=== PATIENT | male | born 1965 | race Caucasian/White ===

== ENCOUNTER 2018-08-16 16:45 | Inpatient (IN) | payer MEDICARE, MEDICAID ==
[~2018-08-16] VITALS: Ht 190.5 cm; Wt 104.0 kg
[~2018-08-16 16:45] MED LIST: BACTDSB PO; ELVI1TAB3 PO; METO50 PO; RISP2 PO
[2018-08-16] MEDS ORDERED: HALOPERIDOL 5 MG TABLET PO PRN (19:00)
[2018-08-16] MEDS ORDERED: ALBUTEROL SULFATE HFA 90 MCG/PUFF 8 GM INHALER IH PRN (19:15)
[2018-08-16] MEDS ORDERED: PETROLATUM,WHITE 71 GM JELLY TP PRN (19:15)
[2018-08-16] MEDS ORDERED: MAG HYDROX/AL HYDROX/SIMETH ES 30 ML SUSPENSION UDCUP PO PRN (19:15)
[2018-08-16] MEDS ORDERED: LOPERAMIDE HCL 2 MG CAPSULE PO PRN (19:15)
[2018-08-16] MEDS ORDERED: ACETAMINOPHEN 325 MG TABLET PO PRN (19:15)
[2018-08-16] MEDS ORDERED: IBUPROFEN 400 MG TABLET PO PRN (19:15)
[2018-08-16] MEDS ORDERED: DOCUSATE SODIUM 100 MG CAPSULE PO PRN (19:15)
[2018-08-16] MEDS ORDERED: MAGNESIUM HYDROXIDE SUSPENSION 30 ML UDCUP PO PRN (19:15)
[2018-08-16] MEDS ORDERED: GuaiFENesin/D-METHORPHAN [SUGAR-FREE] 200-20MG/10 ML SYRUP UDCUP PO PRN (19:15)
[2018-08-16] MEDS ORDERED: CloNIDine HCL 0.1 MG TABLET PO PRN (19:15)
[2018-08-16] MEDS ORDERED: ONDANSETRON HCL 4 MG TABLET PO PRN (19:15)
[2018-08-16 19:49] VITALS: BP 121/63
[2018-08-16] MEDS: RisperiDONE 2 MG TABLET PO SCH (20:56)
[2018-08-17 05:15] VITALS: BP 116/74
[2018-08-17] MEDS ORDERED: PNEUMOCOCCAL VACCINE POLYVALENT 0.5 ML VIAL [PPSV23] IM ONE (05:30)
[2018-08-17 07:04] LABS: BASOPHILS % (AUTO) 1.3 % (0.0-2.0); EOSINOPHILS % (AUTO) 5.4 % (1.0-6.0); HEMATOCRIT 42.1 % (41-53); LYMPHOCYTES # (AUTO) 1.9 K/uL (1.0-4.8); LYMPHOCYTES % (AUTO) 47.6 % (22.0-44.0); MEAN CORPUSCULAR HEMOGLOBIN 33.2 pg (26.0-34.0); MEAN CORPUSCULAR HGB CONC 35.6 G/dL (31.0-37.0); MEAN CORPUSCULAR VOLUME 93 fL (80-100); MONOCYTES # (AUTO) 0.5 K/uL (0.1-1.0); MONOCYTES % (AUTO) 11.5 % (2.0-9.0); NEUTROPHILS # (AUTO) 1.4 K/uL (1.8-7.7); NEUTROPHILS % (AUTO) 34.2 % (40.0-70.0); PLATELET COUNT (AUTO) 156 K/uL (150-450); RED BLOOD CELL COUNT(AUTO) 4.52 MIL/uL (4.50-5.90)
[2018-08-17] MEDS: ELVITEG/COB/EMTRI/TENOF ALAFEN 150-150-200-10MG TABLET PO SCH (07:06)
[2018-08-17 07:34] LABS: HEMOGLOBIN A1C 5.3 % (4.5-6.2)
[2018-08-17 07:38] LABS: APPEARANCE,URINE CLEAR (CLEAR); BILIRUBIN,URINE NEGATIVE (NEGATIVE); GLUCOSE, URINE (UA) NEGATIVE (NEGATIVE); KETONES,URINE NEGATIVE (NEGATIVE); LEUKOCYTE ESTERASE ,URINE NEGATIVE (NEGATIVE); NITRATE,URINE NEGATIVE (NEGATIVE); OCCULT BLOOD,URINE NEGATIVE (NEGATIVE); PROTEIN,URINE NEGATIVE (NEGATIVE); UROBILINOGEN,URINE 0.2 mg/dL (<=1.0)
[2018-08-17 07:39] LABS: AMPHET/METH SCREEN,URINE POSITIVE (NEGATIVE); BARBITURATE SCREEN, URINE NEGATIVE (NEGATIVE); BENZODIAZEPINES SCREEN,URINE NEGATIVE (NEGATIVE); CANNABINOID SCREEN,URINE NEGATIVE (NEGATIVE); COCAINE SCREEN,URINE NEGATIVE (NEGATIVE); METHADONE SCREEN, URINE NEGATIVE (NEGATIVE); OPIATE SCREEN,URINE NEGATIVE (NEGATIVE)
[2018-08-17 07:41] LABS: PHENCYCLIDINE SCREEN,URINE NEGATIVE (NEGATIVE)
[2018-08-17] MEDS: ASPIRIN 81 MG CHEWABLE TABLET PO SCH (08:24)
[2018-08-17] MEDS: RisperiDONE 2 MG TABLET PO SCH ×2 (08:24→20:14)
[2018-08-17] MEDS: SULFAMETHOX/TRIMETH DS 800-160 MG/TABLET PO SCH ×2 (08:24→16:16)
[2018-08-17] MEDS: FLUoxetine HCL 20 MG CAPSULE PO SCH (08:25)
[2018-08-17 08:36] VITALS: BP 122/75
[2018-08-17] MEDS ORDERED: METOPROLOL TARTRATE 50 MG TABLET PO SCH (09:00)
[2018-08-17] MEDS ORDERED: NICOTINE 14 MG/24 HOUR PATCH TD SCH (09:00)
[2018-08-17 09:15] LABS: ALBUMIN 3.5 g/dL (3.4-5.0); BILIRUBIN,TOTAL 0.2 mg/dL (0.1-1.0); CALCIUM, TOTAL 8.7 mg/dL (8.8-10.5); CHOL/HDL RATIO 3.2 (4.2-7.3); CREATININE 1.33 mg/dL (0.60-1.30); POTASSIUM 4.5 mmol/L (3.5-5.1); THYROID STIMULATING HORMONE 3.07 uIU/mL (0.36-3.74); TOTAL PROTEIN, SERUM 6.4 g/dL (6.4-8.2)
[2018-08-17] MEDS: NICOTINE 14 MG/24 HOUR PATCH TD PRN (12:55)
[2018-08-17] MEDS: LORazepam 2 MG TABLET PO PRN (16:16)
[2018-08-17] MEDS: METOPROLOL TARTRATE 50 MG TABLET PO SCH (16:16)
[2018-08-17 18:34] VITALS: BP 129/73
[2018-08-17] MEDS ORDERED: METOPROLOL TARTRATE 25 MG TABLET PO SCH (21:00)
[2018-08-18] MEDS: ELVITEG/COB/EMTRI/TENOF ALAFEN 150-150-200-10MG TABLET PO SCH (07:21)
[2018-08-18] MEDS: SULFAMETHOX/TRIMETH DS 800-160 MG/TABLET PO SCH ×2 (07:57→16:33)
[2018-08-18] MEDS: FLUoxetine HCL 20 MG CAPSULE PO SCH (07:57)
[2018-08-18] MEDS: ASPIRIN 81 MG CHEWABLE TABLET PO SCH (07:58)
[2018-08-18] MEDS: RisperiDONE 2 MG TABLET PO SCH ×2 (07:58→20:20)
[2018-08-18 08:39] VITALS: BP 105/63
[2018-08-18] MEDS: METOPROLOL TARTRATE 50 MG TABLET PO SCH ×2 (09:00→16:33)
[2018-08-18] MEDS: NICOTINE 14 MG/24 HOUR PATCH TD PRN (13:38)
[2018-08-18 16:13] VITALS: BP 120/63
[2018-08-19] MEDS: ELVITEG/COB/EMTRI/TENOF ALAFEN 150-150-200-10MG TABLET PO SCH (06:31)
[2018-08-19] MEDS: SULFAMETHOX/TRIMETH DS 800-160 MG/TABLET PO SCH ×2 (08:26→16:10)
[2018-08-19] MEDS: FLUoxetine HCL 20 MG CAPSULE PO SCH (08:28)
[2018-08-19] MEDS: ASPIRIN 81 MG CHEWABLE TABLET PO SCH (08:29)
[2018-08-19] MEDS: RisperiDONE 2 MG TABLET PO SCH ×2 (08:30→20:21)
[2018-08-19] MEDS: METOPROLOL TARTRATE 50 MG TABLET PO SCH ×2 (09:00→16:11)
[2018-08-19 11:12] VITALS: BP 132/72
[2018-08-19] MEDS: LORazepam 2 MG TABLET PO PRN (16:10)
[2018-08-19 17:59] VITALS: BP 119/75
[2018-08-20] MEDS: ELVITEG/COB/EMTRI/TENOF ALAFEN 150-150-200-10MG TABLET PO SCH (06:34)
[2018-08-20] MEDS: FLUoxetine HCL 20 MG CAPSULE PO SCH (08:22)
[2018-08-20] MEDS: SULFAMETHOX/TRIMETH DS 800-160 MG/TABLET PO SCH ×2 (08:22→16:17)
[2018-08-20] MEDS: RisperiDONE 2 MG TABLET PO SCH ×2 (08:22→20:31)
[2018-08-20] MEDS: ASPIRIN 81 MG CHEWABLE TABLET PO SCH (08:22)
[2018-08-20] MEDS: METOPROLOL TARTRATE 50 MG TABLET PO SCH ×2 (09:00→16:20)
[2018-08-20 10:14] VITALS: BP 113/71
[2018-08-20] MEDS: NICOTINE 14 MG/24 HOUR PATCH TD PRN (14:12)
[2018-08-20] MEDS: LORazepam 2 MG TABLET PO PRN (16:21)
[2018-08-20 16:29] VITALS: BP 120/75
[2018-08-21 00:12] VITALS: BP 121/55
[2018-08-21] MEDS: ZOLPIDEM TARTRATE 5 MG TABLET PO PRN ×2 (00:39→20:05)
[2018-08-21] MEDS: ELVITEG/COB/EMTRI/TENOF ALAFEN 150-150-200-10MG TABLET PO SCH (06:39)
[2018-08-21] MEDS: ASPIRIN 81 MG CHEWABLE TABLET PO SCH (08:28)
[2018-08-21] MEDS: FLUoxetine HCL 20 MG CAPSULE PO SCH (08:29)
[2018-08-21] MEDS: SULFAMETHOX/TRIMETH DS 800-160 MG/TABLET PO SCH ×2 (08:29→16:35)
[2018-08-21] MEDS: RisperiDONE 2 MG TABLET PO SCH ×2 (08:29→20:05)
[2018-08-21] MEDS: METOPROLOL TARTRATE 50 MG TABLET PO SCH ×2 (08:36→16:39)
[2018-08-21 13:37] VITALS: BP 119/90
[2018-08-21] MEDS: NICOTINE 14 MG/24 HOUR PATCH TD PRN (14:12)
[2018-08-21] MEDS: LORazepam 2 MG TABLET PO PRN (16:35)
[2018-08-21 17:00] VITALS: BP 134/78
[2018-08-22 00:51] VITALS: BP 131/64
[2018-08-22] MEDS: ELVITEG/COB/EMTRI/TENOF ALAFEN 150-150-200-10MG TABLET PO SCH (07:00)
[2018-08-22] MEDS: SULFAMETHOX/TRIMETH DS 800-160 MG/TABLET PO SCH (08:20)
[2018-08-22] MEDS: ASPIRIN 81 MG CHEWABLE TABLET PO SCH (08:22)
[2018-08-22] MEDS: FLUoxetine HCL 20 MG CAPSULE PO SCH (08:22)
[2018-08-22] MEDS: METOPROLOL TARTRATE 50 MG TABLET PO SCH (08:22)
[2018-08-22] MEDS: RisperiDONE 2 MG TABLET PO SCH (08:23)
[2018-08-22 09:00] VITALS: BP 130/71
[2018-08-22] MEDS ORDERED: FLUO-191 PO (09:52)
[2018-08-22] MEDS ORDERED: ASPI81 PO (09:54)
== END 2018-08-22 11:00 | disposition home or self-care (01) | DRG 885 ==
LOC: 3EX 16:45 → UNDOADMIN 18:20
PROVIDERS: ADMIT Psychiatry & Neurology Psychiatry; ATTEND Psychiatry & Neurology Psychiatry
DX: F25.0 Schizoaffective disorder, bipolar type (principal); N17.9 Acute kidney failure, unspecified; B20 Human immunodeficiency virus [HIV] disease; R45.851 Suicidal ideations; D72.819 Decreased white blood cell count, unspecified; F17.290 Nicotine dependence, other tobacco product, uncomplicated; F41.9 Anxiety disorder, unspecified; F15.10 Other stimulant abuse, uncomplicated; I10 Essential (primary) hypertension; I95.9 Hypotension, unspecified; I48.0 Paroxysmal atrial fibrillation; Z59.0 Homelessness; Z91.5 Personal history of self-harm; Z28.21 Immunization not carried out because of patient refusal; Z88.5 Allergy status to narcotic agent; Z79.899 Other long term (current) drug therapy; Z71.51 Drug abuse counseling and surveillance of drug abuser
CPT/HCPCS: 80307; 83036; 84443; 87081; G0378

== ENCOUNTER 2020-11-21 08:01 | Emergency (ER) | payer MEDICARE, MEDICAID ==
[~2020-11-21] VITALS: Ht 190.5 cm; Wt 120.0 kg
[~2020-11-21 08:01] MED LIST changes: +ASCO500 PO; -BACTDSB PO; +BICT1TAB PO; +CYCL10 PO; -ELVI1TAB3 PO; +FLUO-191 PO; -METO50 PO; -RISP2 PO; +RISP2TAB45 PO; +WARF7.5T7 PO
[2020-11-21 08:50] LABS: BASOPHILS % (AUTO) 0.8 % (0.0-2.0); EOSINOPHILS % (AUTO) 2.2 % (1.0-6.0); HEMATOCRIT 40.2 % (41-53); HEMOGLOBIN 14.1 g/dL (13.5-17.5); LYMPHOCYTES # (AUTO) 1.9 K/uL (1.0-4.8); LYMPHOCYTES % (AUTO) 23.7 % (22.0-44.0); MEAN CORPUSCULAR HEMOGLOBIN 31.8 pg (26.0-34.0); MEAN CORPUSCULAR HGB CONC 35.1 G/dL (31.0-37.0); MEAN CORPUSCULAR VOLUME 91 fL (80-100); MONOCYTES # (AUTO) 0.8 K/uL (0.1-1.0); NEUTROPHILS # (AUTO) 5.2 K/uL (1.8-7.7); NEUTROPHILS % (AUTO) 63.3 % (40.0-70.0); PLATELET COUNT (AUTO) 149 K/uL (150-450); RED BLOOD CELL COUNT(AUTO) 4.44 MIL/uL (4.50-5.90); RED CELL DISTRIBUTION WIDTH 14.5 % (11.5-14.5)
[2020-11-21] MEDS ORDERED: LORazepam 1 MG TABLET PO ONE (09:15)
[2020-11-21 09:26] LABS: BILIRUBIN,TOTAL 0.8 mg/dL (0.1-1.0); CALCIUM, TOTAL 9.3 mg/dL (8.8-10.5); CREATININE 1.29 mg/dL (0.60-1.30); TOTAL PROTEIN, SERUM 7.4 g/dL (6.4-8.2)
[2020-11-21 09:28] LABS: POTASSIUM 2.2 mmol/L (3.5-5.1)
[2020-11-21 09:31] LABS: INR 2.5 (0.9-1.1); PROTHROMBIN TIME 24.6 SEC (9.4-11.6)
[2020-11-21] MEDS ORDERED: POTASSIUM CHLORIDE 20 MEQ ER TABLET PO ONE ×2 (09:45→12:00)
[2020-11-21] MEDS ORDERED: POTASSIUM CHL 10 MEQ/WATER 50 ML IV ONE ×2 (09:45→12:00)
[2020-11-21 15:31] VITALS: BP 127/59
== END 2020-11-21 15:32 | disposition home or self-care (01) ==
LOC: EMS 08:01
DX: R00.2 Palpitations (principal); E87.6 Hypokalemia; R07.9 Chest pain, unspecified; I48.91 Unspecified atrial fibrillation; F31.9 Bipolar disorder, unspecified; F17.210 Nicotine dependence, cigarettes, uncomplicated; F19.90 Other psychoactive substance use, unspecified, uncomplicated; Z88.5 Allergy status to narcotic agent; Z79.01 Long term (current) use of anticoagulants
CPT/HCPCS: 36415; 80053; 84132; 84484; 85025; 85610; 93005; 96365; 96366; 99285; J3480

== ENCOUNTER 2020-11-24 12:33 | Emergency (ER) | payer MEDICARE, MEDICAID ==
[~2020-11-24] VITALS: Ht 190.5 cm; Wt 113.6 kg
[2020-11-24 13:55] LABS: COVID AG,FIA SOURCE NASOPHARYNGEAL
[2020-11-24 14:00] LABS: BASOPHILS % (AUTO) 0.9 % (0.0-2.0); EOSINOPHILS % (AUTO) 2.3 % (1.0-6.0); HEMATOCRIT 41.7 % (41-53); HEMOGLOBIN 14.2 g/dL (13.5-17.5); LYMPHOCYTES # (AUTO) 2.1 K/uL (1.0-4.8); LYMPHOCYTES % (AUTO) 29.8 % (22.0-44.0); MEAN CORPUSCULAR HEMOGLOBIN 31.4 pg (26.0-34.0); MEAN CORPUSCULAR HGB CONC 34.1 G/dL (31.0-37.0); MEAN CORPUSCULAR VOLUME 92 fL (80-100); MONOCYTES # (AUTO) 0.7 K/uL (0.1-1.0); MONOCYTES % (AUTO) 9.7 % (2.0-9.0); NEUTROPHILS # (AUTO) 4.1 K/uL (1.8-7.7); NEUTROPHILS % (AUTO) 57.3 % (40.0-70.0); PLATELET COUNT (AUTO) 161 K/uL (150-450); RED BLOOD CELL COUNT(AUTO) 4.53 MIL/uL (4.50-5.90); RED CELL DISTRIBUTION WIDTH 14.6 % (11.5-14.5)
[2020-11-24 14:12] LABS: PROTHROMBIN TIME 20.1 SEC (9.4-11.6)
[2020-11-24 14:30] LABS: ALANINE AMINOTRANSFERASE 50 U/L (12-78); ALKALINE PHOSPHATASE 74 U/L (46-116); ANION GAP 14 mmol/L (8-16); ASPARTATE AMINOTRANSFERASE 48 U/L (15-37); BILIRUBIN,TOTAL 0.9 mg/dL (0.1-1.0); CALCIUM, TOTAL 8.6 mg/dL (8.8-10.5); CARBON DIOXIDE 28 mmol/L (22-29); CHLORIDE 99 mmol/L (98-107); CREATININE 1.14 mg/dL (0.60-1.30); GLOMERULAR FILTR. RATE CALC > 60 mL/min (>60); GLUCOSE,RANDOM 100 mg/dL (70-110); POTASSIUM 2.7 mmol/L (3.5-5.1); SODIUM SERUM 141 mmol/L (136-145); TOTAL PROTEIN, SERUM 7.3 g/dL (6.4-8.2); UREA NITROGEN, BLOOD 14 mg/dL (7-18)
[2020-11-24 14:35] LABS: AMPHET/METH SCREEN,URINE POSITIVE (NEGATIVE); BARBITURATE SCREEN, URINE NEGATIVE (NEGATIVE); BENZODIAZEPINES SCREEN,URINE NEGATIVE (NEGATIVE); CANNABINOID SCREEN,URINE NEGATIVE (NEGATIVE); COCAINE SCREEN,URINE NEGATIVE (NEGATIVE); METHADONE SCREEN, URINE NEGATIVE (NEGATIVE); OPIATE SCREEN,URINE NEGATIVE (NEGATIVE); PHENCYCLIDINE SCREEN,URINE NEGATIVE (NEGATIVE)
[2020-11-24] MEDS ORDERED: POTASSIUM CHLORIDE 20 MEQ ER TABLET PO ONE (14:45)
[2020-11-24 15:00] VITALS: BP 145/82
== END 2020-11-24 16:47 | disposition left against medical advice (07) ==
LOC: EMS 12:40
DX: F31.9 Bipolar disorder, unspecified (principal); E87.6 Hypokalemia; I48.91 Unspecified atrial fibrillation; F17.210 Nicotine dependence, cigarettes, uncomplicated; F15.90 Other stimulant use, unspecified, uncomplicated; Z20.822 Contact with and (suspected) exposure to COVID-19
CPT/HCPCS: 36415; 80053; 80307; 85025; 85610; 87426; 93005; 99284; G0480

== ENCOUNTER 2021-05-07 13:21 | Inpatient (IN) | payer MEDICARE, MEDICAID ==
[~2021-05-07] VITALS: Ht 190.5 cm; Wt 121.1 kg
[2021-05-07 14:53] LABS: BASOPHILS % (AUTO) 0.8 % (0.0-2.0); HEMOGLOBIN 16.1 g/dL (13.5-17.5); LYMPHOCYTES # (AUTO) 2.8 K/uL (1.0-4.8); LYMPHOCYTES % (AUTO) 35.6 % (22.0-44.0); MEAN CORPUSCULAR HEMOGLOBIN 32.1 pg (26.0-34.0); MEAN CORPUSCULAR HGB CONC 33.5 G/dL (31.0-37.0); MEAN CORPUSCULAR VOLUME 96 fL (80-100); MONOCYTES # (AUTO) 0.9 K/uL (0.1-1.0); MONOCYTES % (AUTO) 10.8 % (2.0-9.0); NEUTROPHILS % (AUTO) 50.8 % (40.0-70.0); PLATELET COUNT (AUTO) 141 K/uL (150-450); RED CELL DISTRIBUTION WIDTH 16.1 % (11.5-14.5)
[2021-05-07 15:02] LABS: ANION GAP 10 mmol/L (8-16); CALCIUM, TOTAL 8.7 mg/dL (8.8-10.5); CARBON DIOXIDE 26 mmol/L (22-29); CHLORIDE 103 mmol/L (98-107); CREATININE 1.43 mg/dL (0.60-1.30); GLOMERULAR FILTR. RATE CALC 51 mL/min (>60); GLUCOSE,RANDOM 80 mg/dL (70-110); POTASSIUM 3.7 mmol/L (3.5-5.1); SODIUM SERUM 139 mmol/L (136-145); UREA NITROGEN, BLOOD 19 mg/dL (7-18)
[2021-05-07 15:05] LABS: INR 1.6 (0.9-1.1); PROTHROMBIN TIME 16.2 SEC (9.4-11.6)
[2021-05-07 15:10] LABS: ALANINE AMINOTRANSFERASE 68 U/L (12-78); ALKALINE PHOSPHATASE 66 U/L (46-116); ASPARTATE AMINOTRANSFERASE 38 U/L (15-37); BILIRUBIN,TOTAL 0.9 mg/dL (0.1-1.0); TOTAL PROTEIN, SERUM 7.5 g/dL (6.4-8.2)
[2021-05-07 15:25] LABS: COVID AG,FIA SOURCE NASOPHARYNGEAL
[2021-05-07] MEDS ORDERED: ZOLPIDEM TARTRATE 10 MG TABLET PO PRN (15:30)
[2021-05-07] MEDS ORDERED: HALOPERIDOL 5 MG TABLET PO PRN (15:30)
[2021-05-07 15:39] LABS: AMPHET/METH SCREEN,URINE POSITIVE (NEGATIVE); BARBITURATE SCREEN, URINE NEGATIVE (NEGATIVE); BENZODIAZEPINES SCREEN,URINE NEGATIVE (NEGATIVE); CANNABINOID SCREEN,URINE NEGATIVE (NEGATIVE); COCAINE SCREEN,URINE NEGATIVE (NEGATIVE); METHADONE SCREEN, URINE NEGATIVE (NEGATIVE); OPIATE SCREEN,URINE NEGATIVE (NEGATIVE)
[2021-05-07 15:48] LABS: PHENCYCLIDINE SCREEN,URINE NEGATIVE (NEGATIVE)
[2021-05-08] MEDS ORDERED: CALCIUM CARBONATE 500 MG CHEWABLE TABLET CHEW ONE (00:45)
[2021-05-08 02:08] LABS: CHOL/HDL RATIO 3.6 (4.2-7.3); CHOLESTEROL 136 mg/dL (131-200); FREE T4 (FREE THYROXINE) 1.03 ng/dL (0.76-1.46); HDL CHOLESTEROL 38 mg/dL (40-60); LDL CHOL (CALC.) 74 mg/dL (0-130); THYROID STIMULATING HORMONE 1.34 uIU/mL (0.36-3.74); TRIGLYCERIDES 121 mg/dL (15-150)
[2021-05-08 10:00] VITALS: BP 138/74
[2021-05-08] MEDS: NICOTINE 21 MG/24 HOUR PATCH TD SCH (15:55)
[2021-05-08 16:04] VITALS: BP 120/67
[2021-05-08] MEDS ORDERED: IBUPROFEN 600 MG TABLET PO PRN (16:15)
[2021-05-08] MEDS ORDERED: LOPERAMIDE HCL 2 MG CAPSULE PO PRN ×2 (16:15)
[2021-05-08] MEDS ORDERED: DOCUSATE SODIUM 100 MG CAPSULE PO PRN ×2 (16:15)
[2021-05-08] MEDS ORDERED: ALBUTEROL SULFATE HFA 90 MCG/PUFF 8 GM INHALER IH PRN ×2 (16:15)
[2021-05-08] MEDS ORDERED: OMEPRAZOLE 20 MG CAPSULE PO PRN (16:15)
[2021-05-08] MEDS ORDERED: IBUPROFEN 400 MG TABLET PO PRN (16:15)
[2021-05-08] MEDS ORDERED: ONDANSETRON HCL 4 MG TABLET PO PRN ×2 (16:15)
[2021-05-08] MEDS ORDERED: BENZOCAINE/MENTHOL LOZENGE PO PRN (16:15)
[2021-05-08] MEDS ORDERED: PETROLATUM,WHITE 28 GM JELLY TP PRN ×2 (16:15)
[2021-05-08] MEDS ORDERED: BACITRACIN 28 GM OINTMENT TP PRN (16:15)
[2021-05-08] MEDS ORDERED: NICOTINE 14 MG/24 HOUR PATCH TD PRN (16:15)
[2021-05-08] MEDS ORDERED: MAG HYDROX/AL HYDROX/SIMETH ES 30 ML SUSPENSION UDCUP PO PRN (16:15)
[2021-05-08] MEDS ORDERED: MAGNESIUM HYDROXIDE SUSPENSION 30 ML UDCUP PO PRN (16:15)
[2021-05-08] MEDS ORDERED: *CLINICAL-WARFARIN SODIUM DOSING CLINICAL ONE (16:15)
[2021-05-08] MEDS ORDERED: ACETAMINOPHEN 325 MG TABLET PO PRN ×2 (16:15)
[2021-05-08] MEDS ORDERED: CloNIDine HCL 0.1 MG TABLET PO PRN ×2 (16:15)
[2021-05-08] MEDS ORDERED: GuaiFENesin/D-METHORPHAN [SUGAR-FREE] 200-20MG/10 ML SYRUP UDCUP PO PRN (16:15)
[2021-05-08] MEDS ORDERED: WARFARIN SODIUM 5 MG TABLET PO ONE (17:00)
[2021-05-08] MEDS ORDERED: PNEUMOCOCCAL VACCINE POLYVALENT 0.5 ML VIAL [PPSV23] IM. ONE (17:00)
[2021-05-08] MEDS: CYCLOBENZAPRINE HCL 10 MG TABLET PO SCH (17:32)
[2021-05-08] MEDS: OLANZapine 7.5 MG TABLET PO SCH (20:08)
[2021-05-08] MEDS: MIRTAZAPINE 30 MG TABLET PO SCH (20:08)
[2021-05-09 03:15] VITALS: BP 125/72
[2021-05-09 08:08] VITALS: BP 113/59
[2021-05-09] MEDS ORDERED: BICTEGRAV/EMTRICIT/TENOFOV ALA 50-200-25 MG TABLET PO SCH (09:00)
[2021-05-09] MEDS: ASCORBIC ACID 500 MG TABLET PO SCH (09:00)
[2021-05-09] MEDS: BICTEGRAV/EMTRICIT/TENOFOV ALA 50-200-25 MG TABLET PO SCH (09:00)
[2021-05-09] MEDS: CYCLOBENZAPRINE HCL 10 MG TABLET PO SCH ×2 (10:40→16:53)
[2021-05-09] MEDS: NICOTINE 21 MG/24 HOUR PATCH TD SCH (10:41)
[2021-05-09] MEDS: LORazepam 2 MG TABLET PO PRN (14:31)
[2021-05-09 16:03] VITALS: BP_SYST 133; BP_SYST 137; BP_DIAS 79; BP_DIAS 86
[2021-05-09 16:13] VITALS: BP 107/79
[2021-05-09] MEDS: MULTIVITAMINS WITH MINERALS, THERAPEUTIC TABLET PO SCH (16:53)
[2021-05-09] MEDS ORDERED: WARFARIN SODIUM 5 MG TABLET PO SCH (17:00)
[2021-05-09] MEDS ORDERED: WARFARIN SODIUM-INR 2.0-3.0-RX DOSING PER PROTOCOL PO PRN (17:00)
[2021-05-09] MEDS: OLANZapine 7.5 MG TABLET PO SCH (20:45)
[2021-05-09] MEDS: MIRTAZAPINE 30 MG TABLET PO SCH (20:45)
[2021-05-10 01:04] VITALS: BP 115/71
[2021-05-10 08:23] VITALS: BP 118/92
[2021-05-10] MEDS: NICOTINE 21 MG/24 HOUR PATCH TD SCH (10:15)
[2021-05-10] MEDS: ASCORBIC ACID 500 MG TABLET PO SCH (10:15)
[2021-05-10] MEDS: BICTEGRAV/EMTRICIT/TENOFOV ALA 50-200-25 MG TABLET PO SCH (10:18)
[2021-05-10] MEDS: CYCLOBENZAPRINE HCL 10 MG TABLET PO SCH ×2 (10:28→17:09)
[2021-05-10] MEDS: MULTIVITAMINS WITH MINERALS, THERAPEUTIC TABLET PO SCH ×2 (10:28→17:09)
[2021-05-10] MEDS: LORazepam 2 MG TABLET PO PRN ×2 (10:38→16:20)
[2021-05-10 16:10] VITALS: BP 114/76
[2021-05-10] MEDS: MAG HYDROX/AL HYDROX/SIMETH ES 30 ML SUSPENSION UDCUP PO PRN (18:00)
[2021-05-10] MEDS: OLANZapine 7.5 MG TABLET PO SCH (20:28)
[2021-05-10] MEDS: MIRTAZAPINE 30 MG TABLET PO SCH (20:28)
[2021-05-10] MEDS ORDERED: WARFARIN SODIUM 2.5 MG TABLET PO SCH (21:00)
[2021-05-10] MEDS ORDERED: WARFARIN SODIUM 1 MG TABLET PO SCH (21:00)
[2021-05-10] MEDS ORDERED: WARFARIN SODIUM 3 MG TABLET PO SCH (21:00)
[2021-05-11 01:02] VITALS: BP 129/77
[2021-05-11 08:21] LABS: INR 1.2 (0.9-1.1)
[2021-05-11 09:03] VITALS: BP 117/63
[2021-05-11] MEDS: MULTIVITAMINS WITH MINERALS, THERAPEUTIC TABLET PO SCH ×2 (09:23→16:31)
[2021-05-11] MEDS: NICOTINE 21 MG/24 HOUR PATCH TD SCH (09:23)
[2021-05-11] MEDS: BICTEGRAV/EMTRICIT/TENOFOV ALA 50-200-25 MG TABLET PO SCH (09:24)
[2021-05-11] MEDS: CYCLOBENZAPRINE HCL 10 MG TABLET PO SCH ×2 (09:24→16:32)
[2021-05-11] MEDS: ASCORBIC ACID 500 MG TABLET PO SCH (09:24)
[2021-05-11] MEDS ORDERED: *CLINICAL-WARFARIN SODIUM DOSING CLINICAL ONE (10:15)
[2021-05-11] MEDS: LORazepam 2 MG TABLET PO PRN ×2 (11:45→15:48)
[2021-05-11 16:23] VITALS: BP 116/65
[2021-05-11] MEDS ORDERED: WARFARIN SODIUM 7.5 MG TABLET PO ONE (17:00)
[2021-05-11] MEDS: MAGNESIUM HYDROXIDE SUSPENSION 30 ML UDCUP PO PRN (17:01)
[2021-05-11] MEDS: MIRTAZAPINE 30 MG TABLET PO SCH (20:20)
[2021-05-11] MEDS: OLANZapine 7.5 MG TABLET PO SCH (20:20)
[2021-05-12 06:07] VITALS: BP 136/60
[2021-05-12 06:58] LABS: INR 1.3 (0.9-1.1); PROTHROMBIN TIME 13.2 SEC (9.4-11.6)
[2021-05-12 08:16] VITALS: BP 125/69
[2021-05-12] MEDS: BICTEGRAV/EMTRICIT/TENOFOV ALA 50-200-25 MG TABLET PO SCH (09:48)
[2021-05-12] MEDS: MULTIVITAMINS WITH MINERALS, THERAPEUTIC TABLET PO SCH ×2 (09:48→16:29)
[2021-05-12] MEDS: NICOTINE 21 MG/24 HOUR PATCH TD SCH (09:49)
[2021-05-12] MEDS: CYCLOBENZAPRINE HCL 10 MG TABLET PO SCH ×2 (09:49→16:29)
[2021-05-12] MEDS: ASCORBIC ACID 500 MG TABLET PO SCH (09:49)
[2021-05-12] MEDS: LORazepam 2 MG TABLET PO PRN (13:12)
[2021-05-12] MEDS: MAGNESIUM HYDROXIDE SUSPENSION 30 ML UDCUP PO PRN (16:55)
[2021-05-12] MEDS ORDERED: WARFARIN SODIUM 7.5 MG TABLET PO ONE (17:00)
[2021-05-12] MEDS: MIRTAZAPINE 30 MG TABLET PO SCH (20:00)
[2021-05-12] MEDS: OLANZapine 7.5 MG TABLET PO SCH (20:00)
[2021-05-13 01:06] VITALS: BP 112/62
[2021-05-13 07:07] LABS: COVID AG,FIA SOURCE NASOPHARYNGEAL
[2021-05-13 07:18] LABS: INR 1.6 (0.9-1.1); PROTHROMBIN TIME 16.3 SEC (9.4-11.6)
[2021-05-13 08:16] VITALS: BP 134/81
[2021-05-13] MEDS: ASCORBIC ACID 500 MG TABLET PO SCH (09:35)
[2021-05-13] MEDS: BICTEGRAV/EMTRICIT/TENOFOV ALA 50-200-25 MG TABLET PO SCH (09:35)
[2021-05-13] MEDS: MULTIVITAMINS WITH MINERALS, THERAPEUTIC TABLET PO SCH ×2 (09:36→16:30)
[2021-05-13] MEDS: CYCLOBENZAPRINE HCL 10 MG TABLET PO SCH ×2 (09:36→16:30)
[2021-05-13] MEDS: NICOTINE 21 MG/24 HOUR PATCH TD SCH (09:39)
[2021-05-13] MEDS: LORazepam 2 MG TABLET PO PRN ×2 (11:20→16:33)
[2021-05-13] MEDS ORDERED: WARFARIN SODIUM-INR 2.0-3.0-RX DOSING PER PROTOCOL PO PRN (14:30)
[2021-05-13 16:23] VITALS: BP 117/70
[2021-05-13] MEDS ORDERED: WARFARIN SODIUM 7.5 MG TABLET PO ONE (17:00)
[2021-05-13] MEDS: MAG HYDROX/AL HYDROX/SIMETH ES 30 ML SUSPENSION UDCUP PO PRN (19:27)
[2021-05-13] MEDS: MIRTAZAPINE 30 MG TABLET PO SCH (20:01)
[2021-05-13] MEDS: OLANZapine 7.5 MG TABLET PO SCH (20:02)
[2021-05-14 00:36] VITALS: BP 139/70
[2021-05-14] MEDS: MAG HYDROX/AL HYDROX/SIMETH ES 30 ML SUSPENSION UDCUP PO PRN ×2 (01:08→21:53)
[2021-05-14 07:05] LABS: ALANINE AMINOTRANSFERASE 55 U/L (12-78); ALBUMIN 3.3 g/dL (3.4-5.0); ALKALINE PHOSPHATASE 55 U/L (46-116); ANION GAP 5 mmol/L (8-16); ASPARTATE AMINOTRANSFERASE 23 U/L (15-37); BILIRUBIN,TOTAL 0.3 mg/dL (0.1-1.0); CALCIUM, TOTAL 7.9 mg/dL (8.8-10.5); CARBON DIOXIDE 28 mmol/L (22-29); CHLORIDE 108 mmol/L (98-107); CREATININE 1.06 mg/dL (0.60-1.30); GLOMERULAR FILTR. RATE CALC > 60 mL/min (>60); GLUCOSE,RANDOM 99 mg/dL (70-110); PHOSPHORUS 3.6 mg/dL (2.5-4.9); POTASSIUM 4.3 mmol/L (3.5-5.1); SODIUM SERUM 141 mmol/L (136-145); TOTAL PROTEIN, SERUM 6.2 g/dL (6.4-8.2); UREA NITROGEN, BLOOD 18 mg/dL (7-18)
[2021-05-14 07:08] LABS: INR 1.4 (0.9-1.1); PROTHROMBIN TIME 14.8 SEC (9.4-11.6)
[2021-05-14 08:36] VITALS: BP 133/85
[2021-05-14] MEDS: MULTIVITAMINS WITH MINERALS, THERAPEUTIC TABLET PO SCH ×2 (09:29→16:34)
[2021-05-14] MEDS: CYCLOBENZAPRINE HCL 10 MG TABLET PO SCH ×2 (09:29→16:34)
[2021-05-14] MEDS: BICTEGRAV/EMTRICIT/TENOFOV ALA 50-200-25 MG TABLET PO SCH (09:29)
[2021-05-14] MEDS: NICOTINE 21 MG/24 HOUR PATCH TD SCH (09:29)
[2021-05-14] MEDS: ASCORBIC ACID 500 MG TABLET PO SCH (09:29)
[2021-05-14] MEDS: LORazepam 2 MG TABLET PO PRN ×2 (12:12→16:39)
[2021-05-14 16:21] VITALS: BP 121/69
[2021-05-14] MEDS ORDERED: WARFARIN SODIUM 7.5 MG TABLET PO SCH (17:00)
[2021-05-14] MEDS ORDERED: WARFARIN SODIUM 5 MG TABLET PO SCH (17:00)
[2021-05-14] MEDS: OLANZapine 7.5 MG TABLET PO SCH (21:15)
[2021-05-14] MEDS: MIRTAZAPINE 30 MG TABLET PO SCH (21:15)
[2021-05-15 04:44] VITALS: BP 132/69
[2021-05-15 07:32] LABS: INR 1.5 (0.9-1.1); PROTHROMBIN TIME 15.6 SEC (9.4-11.6)
[2021-05-15 08:20] VITALS: BP 140/80
[2021-05-15] MEDS: MULTIVITAMINS WITH MINERALS, THERAPEUTIC TABLET PO SCH ×2 (09:00→16:51)
[2021-05-15] MEDS: CYCLOBENZAPRINE HCL 10 MG TABLET PO SCH ×2 (09:00→16:51)
[2021-05-15] MEDS: NICOTINE 21 MG/24 HOUR PATCH TD SCH (11:06)
[2021-05-15] MEDS: BICTEGRAV/EMTRICIT/TENOFOV ALA 50-200-25 MG TABLET PO SCH (11:08)
[2021-05-15] MEDS: ASCORBIC ACID 500 MG TABLET PO SCH (11:08)
[2021-05-15] MEDS: LORazepam 2 MG TABLET PO PRN (11:53)
[2021-05-15 16:16] VITALS: BP 143/84
[2021-05-15] MEDS: MAGNESIUM HYDROXIDE SUSPENSION 30 ML UDCUP PO PRN (16:20)
[2021-05-15] MEDS ORDERED: WARFARIN SODIUM 7.5 MG TABLET PO SCH (17:00)
[2021-05-15] MEDS: OLANZapine 7.5 MG TABLET PO SCH (20:41)
[2021-05-15] MEDS: MIRTAZAPINE 30 MG TABLET PO SCH (20:41)
[2021-05-15] MEDS: MAG HYDROX/AL HYDROX/SIMETH ES 30 ML SUSPENSION UDCUP PO PRN (20:55)
[2021-05-16 05:49] VITALS: BP 124/66
[2021-05-16 07:33] LABS: INR 1.6 (0.9-1.1); PROTHROMBIN TIME 16.4 SEC (9.4-11.6)
[2021-05-16 08:24] VITALS: BP 106/61
[2021-05-16] MEDS: BICTEGRAV/EMTRICIT/TENOFOV ALA 50-200-25 MG TABLET PO SCH (08:40)
[2021-05-16] MEDS: MULTIVITAMINS WITH MINERALS, THERAPEUTIC TABLET PO SCH ×2 (08:40→16:33)
[2021-05-16] MEDS: ASCORBIC ACID 500 MG TABLET PO SCH (08:40)
[2021-05-16] MEDS: CYCLOBENZAPRINE HCL 10 MG TABLET PO SCH ×2 (08:40→16:33)
[2021-05-16] MEDS: NICOTINE 21 MG/24 HOUR PATCH TD SCH (08:41)
[2021-05-16] MEDS: LORazepam 2 MG TABLET PO PRN ×2 (13:02→17:08)
[2021-05-16 16:27] VITALS: BP 119/70
[2021-05-16] MEDS ORDERED: WARFARIN SODIUM 1 MG TABLET PO SCH (17:00)
[2021-05-16] MEDS: WARFARIN SODIUM 2 MG TABLET PO SCH (17:51)
[2021-05-16] MEDS: MIRTAZAPINE 30 MG TABLET PO SCH (20:35)
[2021-05-16] MEDS: OLANZapine 7.5 MG TABLET PO SCH (20:36)
[2021-05-17 01:00] VITALS: BP 128/69
[2021-05-17 07:53] LABS: INR 1.8 (0.9-1.1)
[2021-05-17 08:25] VITALS: BP 128/65
[2021-05-17] MEDS: CYCLOBENZAPRINE HCL 10 MG TABLET PO SCH ×2 (09:05→16:33)
[2021-05-17] MEDS: MULTIVITAMINS WITH MINERALS, THERAPEUTIC TABLET PO SCH ×2 (09:05→16:34)
[2021-05-17] MEDS: BICTEGRAV/EMTRICIT/TENOFOV ALA 50-200-25 MG TABLET PO SCH (09:06)
[2021-05-17] MEDS: ASCORBIC ACID 500 MG TABLET PO SCH (09:06)
[2021-05-17] MEDS: NICOTINE 21 MG/24 HOUR PATCH TD SCH (09:06)
[2021-05-17] MEDS: LORazepam 2 MG TABLET PO PRN ×2 (12:17→18:55)
[2021-05-17 16:25] VITALS: BP 124/68
[2021-05-17] MEDS: WARFARIN SODIUM 2 MG TABLET PO SCH (16:34)
[2021-05-17] MEDS: MIRTAZAPINE 30 MG TABLET PO SCH (20:33)
[2021-05-17] MEDS: OLANZapine 7.5 MG TABLET PO SCH (20:33)
[2021-05-17] MEDS: MAG HYDROX/AL HYDROX/SIMETH ES 30 ML SUSPENSION UDCUP PO PRN (23:51)
[2021-05-18 00:37] VITALS: BP 123/86
[2021-05-18 08:16] VITALS: BP 130/81
[2021-05-18] MEDS ORDERED: WARF5TAB40 PO (09:32)
[2021-05-18] MEDS ORDERED: MIRT30 PO (09:33)
[2021-05-18] MEDS ORDERED: OLAN7.5T22 PO (09:33)
[2021-05-18] MEDS: CYCLOBENZAPRINE HCL 10 MG TABLET PO SCH (09:45)
[2021-05-18] MEDS: ASCORBIC ACID 500 MG TABLET PO SCH (09:45)
[2021-05-18] MEDS: BICTEGRAV/EMTRICIT/TENOFOV ALA 50-200-25 MG TABLET PO SCH (09:45)
[2021-05-18] MEDS: MULTIVITAMINS WITH MINERALS, THERAPEUTIC TABLET PO SCH (09:45)
[2021-05-18] MEDS: NICOTINE 21 MG/24 HOUR PATCH TD SCH (09:46)
== END 2021-05-18 13:30 | disposition home or self-care (01) | DRG 885 ==
LOC: EMS 13:43 → B2X 05-08 06:48 → B2S 05-09 16:00
PROVIDERS: ADMIT Psychiatry & Neurology Psychiatry; ATTEND Psychiatry & Neurology Psychiatry
PROC: 3E0234Z Introduction of Serum, Toxoid and Vaccine into Muscle, Percutaneous Approach (ICD-10-PCS; principal; 2021-05-08)
DX: F25.0 Schizoaffective disorder, bipolar type (principal); N17.9 Acute kidney failure, unspecified; I48.20 Chronic atrial fibrillation, unspecified; R45.851 Suicidal ideations; D69.6 Thrombocytopenia, unspecified; F17.290 Nicotine dependence, other tobacco product, uncomplicated; Z20.822 Contact with and (suspected) exposure to COVID-19; F19.10 Other psychoactive substance abuse, uncomplicated; F15.90 Other stimulant use, unspecified, uncomplicated; F10.10 Alcohol abuse, uncomplicated; Z21 Asymptomatic human immunodeficiency virus [HIV] infection status; Z79.01 Long term (current) use of anticoagulants; Z86.718 Personal history of other venous thrombosis and embolism; Z23 Encounter for immunization; Z88.5 Allergy status to narcotic agent; Z79.899 Other long term (current) drug therapy; Z71.41 Alcohol abuse counseling and surveillance of alcoholic
CPT/HCPCS: 80053; 80061; 80069; 84439; 84443; 85025; 85610; 85730; 90732; 99285; G0480; Q9967

== ENCOUNTER 2021-06-09 06:42 | Inpatient (IN) | payer MEDICARE, MEDICAID ==
[~2021-06-09] VITALS: Ht 190.5 cm; Wt 120.7 kg
[~2021-06-09 06:42] MED LIST changes: -ASCO500 PO; -CYCL10 PO; +CYCL10TA17 PO; -FLUO-191 PO; +MIRT30 PO; +OLAN7.5T22 PO; -RISP2TAB45 PO
[2021-06-09 07:36] LABS: EOSINOPHILS % (AUTO) 1.3 % (1.0-6.0); HEMATOCRIT 44.2 % (41-53); HEMOGLOBIN 15.3 g/dL (13.5-17.5); LYMPHOCYTES # (AUTO) 2.2 K/uL (1.0-4.8); LYMPHOCYTES % (AUTO) 29.9 % (22.0-44.0); MEAN CORPUSCULAR HEMOGLOBIN 32.5 pg (26.0-34.0); MEAN CORPUSCULAR HGB CONC 34.6 G/dL (31.0-37.0); MEAN CORPUSCULAR VOLUME 94 fL (80-100); MONOCYTES # (AUTO) 0.8 K/uL (0.1-1.0); MONOCYTES % (AUTO) 11.1 % (2.0-9.0); NEUTROPHILS # (AUTO) 4.1 K/uL (1.8-7.7); NEUTROPHILS % (AUTO) 55.7 % (40.0-70.0); PLATELET COUNT (AUTO) 172 K/uL (150-450)
[2021-06-09 08:04] LABS: ANION GAP 11 mmol/L (8-16); CALCIUM, TOTAL 8.7 mg/dL (8.8-10.5); CARBON DIOXIDE 25 mmol/L (22-29); CHLORIDE 102 mmol/L (98-107); CREATININE 1.38 mg/dL (0.60-1.30); GLOMERULAR FILTR. RATE CALC 53 mL/min (>60); GLUCOSE,RANDOM 120 mg/dL (70-110); POTASSIUM 3.7 mmol/L (3.5-5.1); SODIUM SERUM 138 mmol/L (136-145); UREA NITROGEN, BLOOD 23 mg/dL (7-18)
[2021-06-09 08:10] LABS: ALANINE AMINOTRANSFERASE 63 U/L (12-78); ALBUMIN 3.9 g/dL (3.4-5.0); ALKALINE PHOSPHATASE 71 U/L (46-116); ASPARTATE AMINOTRANSFERASE 42 U/L (15-37); BILIRUBIN,TOTAL 0.7 mg/dL (0.1-1.0); TOTAL PROTEIN, SERUM 7.5 g/dL (6.4-8.2)
[2021-06-09 08:32] LABS: INR 1.6 (0.9-1.1)
[2021-06-09 09:30] LABS: COVID AG,FIA SOURCE NASOPHARYNGEAL
[2021-06-09 13:00] VITALS: BP 128/78
[2021-06-09] MEDS ORDERED: *CLINICAL-WARFARIN SODIUM DOSING CLINICAL ONE (15:30)
[2021-06-09 16:21] VITALS: BP 130/83
[2021-06-09] MEDS: WARFARIN SODIUM 5 MG TABLET PO SCH (17:15)
[2021-06-09] MEDS: CYCLOBENZAPRINE HCL 10 MG TABLET PO SCH (17:16)
[2021-06-09] MEDS: OLANZapine 7.5 MG TABLET PO SCH (21:14)
[2021-06-09] MEDS: MIRTAZAPINE 30 MG TABLET PO SCH (21:14)
[2021-06-10 00:40] VITALS: BP 131/77
[2021-06-10 07:59] LABS: INR 1.7 (0.9-1.1); PROTHROMBIN TIME 17.3 SEC (9.4-11.6)
[2021-06-10] MEDS: CYCLOBENZAPRINE HCL 10 MG TABLET PO SCH ×2 (09:24→16:06)
[2021-06-10] MEDS: BICTEGRAV/EMTRICIT/TENOFOV ALA 50-200-25 MG TABLET PO SCH (09:24)
[2021-06-10] MEDS ORDERED: PETROLATUM,WHITE 28 GM JELLY TP PRN (11:30)
[2021-06-10] MEDS ORDERED: MAG HYDROX/AL HYDROX/SIMETH ES 30 ML SUSPENSION UDCUP PO PRN (11:30)
[2021-06-10] MEDS ORDERED: CloNIDine HCL 0.1 MG TABLET PO PRN (11:30)
[2021-06-10] MEDS ORDERED: DOCUSATE SODIUM 100 MG CAPSULE PO PRN (11:30)
[2021-06-10] MEDS ORDERED: GuaiFENesin/D-METHORPHAN [SUGAR-FREE] 200-20MG/10 ML SYRUP UDCUP PO PRN (11:30)
[2021-06-10] MEDS ORDERED: ONDANSETRON HCL 4 MG TABLET PO PRN (11:30)
[2021-06-10] MEDS ORDERED: ACETAMINOPHEN 325 MG TABLET PO PRN (11:30)
[2021-06-10] MEDS ORDERED: IBUPROFEN 400 MG TABLET PO PRN (11:30)
[2021-06-10] MEDS ORDERED: LOPERAMIDE HCL 2 MG CAPSULE PO PRN (11:30)
[2021-06-10] MEDS ORDERED: ALBUTEROL SULFATE HFA 90 MCG/PUFF 8 GM INHALER IH PRN (11:30)
[2021-06-10] MEDS: LORazepam 2 MG TABLET PO PRN (15:44)
[2021-06-10] MEDS: WARFARIN SODIUM 5 MG TABLET PO SCH (16:05)
[2021-06-10 16:24] VITALS: BP 112/84
[2021-06-10] MEDS ORDERED: WARFARIN SODIUM 7.5 MG TABLET PO SCH (17:00)
[2021-06-10] MEDS: OLANZapine 7.5 MG TABLET PO SCH (20:22)
[2021-06-10] MEDS: MIRTAZAPINE 30 MG TABLET PO SCH (20:22)
[2021-06-11 01:45] VITALS: BP 128/77
[2021-06-11 08:32] LABS: INR 2.1 (0.9-1.1); PROTHROMBIN TIME 20.9 SEC (9.4-11.6)
[2021-06-11] MEDS: BICTEGRAV/EMTRICIT/TENOFOV ALA 50-200-25 MG TABLET PO SCH (09:06)
[2021-06-11] MEDS: CYCLOBENZAPRINE HCL 10 MG TABLET PO SCH ×2 (09:06→16:43)
[2021-06-11 11:05] VITALS: BP 136/83
[2021-06-11] MEDS: LORazepam 2 MG TABLET PO PRN (12:34)
[2021-06-11] MEDS: NICOTINE 14 MG/24 HOUR PATCH TD PRN (12:34)
[2021-06-11] MEDS: WARFARIN SODIUM 5 MG TABLET PO SCH (16:43)
[2021-06-11 19:41] VITALS: BP 132/78
[2021-06-11] MEDS: MIRTAZAPINE 30 MG TABLET PO SCH (20:35)
[2021-06-11] MEDS: OLANZapine 7.5 MG TABLET PO SCH (20:36)
[2021-06-12 05:12] VITALS: BP 126/80
[2021-06-12 07:23] LABS: INR 2.2 (0.9-1.1); PROTHROMBIN TIME 21.9 SEC (9.4-11.6)
[2021-06-12 08:20] VITALS: BP 146/96
[2021-06-12] MEDS: MUPIROCIN CALCIUM 2% 22 GM OINTMENT NASAL SCH ×2 (09:00→16:28)
[2021-06-12] MEDS: CYCLOBENZAPRINE HCL 10 MG TABLET PO SCH ×2 (09:00→16:29)
[2021-06-12] MEDS: BICTEGRAV/EMTRICIT/TENOFOV ALA 50-200-25 MG TABLET PO SCH (09:01)
[2021-06-12] MEDS: LORazepam 1 MG TABLET PO PRN (12:28)
[2021-06-12] MEDS: NICOTINE 14 MG/24 HOUR PATCH TD PRN (12:59)
[2021-06-12] MEDS: HALOPERIDOL 5 MG TABLET PO PRN (13:21)
[2021-06-12 16:28] VITALS: BP 124/79
[2021-06-12] MEDS ORDERED: WARFARIN SODIUM 5 MG TABLET PO SCH (17:00)
[2021-06-12] MEDS: MIRTAZAPINE 30 MG TABLET PO SCH (20:30)
[2021-06-12] MEDS: OLANZapine 7.5 MG TABLET PO SCH (20:30)
[2021-06-13 06:31] VITALS: BP 133/81
[2021-06-13 08:04] LABS: INR 2.2 (0.9-1.1); PROTHROMBIN TIME 21.5 SEC (9.4-11.6)
[2021-06-13 08:06] VITALS: BP 108/54
[2021-06-13] MEDS: BICTEGRAV/EMTRICIT/TENOFOV ALA 50-200-25 MG TABLET PO SCH (08:50)
[2021-06-13] MEDS: CYCLOBENZAPRINE HCL 10 MG TABLET PO SCH ×2 (08:50→16:34)
[2021-06-13] MEDS: MUPIROCIN CALCIUM 2% 22 GM OINTMENT NASAL SCH ×2 (08:51→16:34)
[2021-06-13] MEDS: LORazepam 1 MG TABLET PO PRN (13:28)
[2021-06-13 16:01] VITALS: BP 114/65
[2021-06-13] MEDS: WARFARIN SODIUM 5 MG TABLET PO SCH (16:34)
[2021-06-13] MEDS: NICOTINE 14 MG/24 HOUR PATCH TD PRN (19:10)
[2021-06-13] MEDS: OLANZapine 7.5 MG TABLET PO SCH (20:30)
[2021-06-13] MEDS: MIRTAZAPINE 30 MG TABLET PO SCH (20:31)
[2021-06-13] MEDS: ZOLPIDEM TARTRATE 10 MG TABLET PO PRN (21:36)
[2021-06-14 00:13] VITALS: BP 110/67
[2021-06-14 07:01] LABS: COVID AG,FIA SOURCE NASOPHARYNGEAL
[2021-06-14 07:34] LABS: PROTHROMBIN TIME 20.2 SEC (9.4-11.6)
[2021-06-14 08:13] VITALS: BP 124/64
[2021-06-14] MEDS: CYCLOBENZAPRINE HCL 10 MG TABLET PO SCH ×2 (08:13→16:32)
[2021-06-14] MEDS: MUPIROCIN CALCIUM 2% 22 GM OINTMENT NASAL SCH ×2 (08:13→16:33)
[2021-06-14] MEDS: BICTEGRAV/EMTRICIT/TENOFOV ALA 50-200-25 MG TABLET PO SCH (08:14)
[2021-06-14] MEDS: LORazepam 1 MG TABLET PO PRN ×2 (12:21→19:01)
[2021-06-14 16:03] VITALS: BP 142/80
[2021-06-14] MEDS: WARFARIN SODIUM 5 MG TABLET PO SCH (16:31)
[2021-06-14] MEDS: NICOTINE 14 MG/24 HOUR PATCH TD PRN (18:45)
[2021-06-14] MEDS: OLANZapine 7.5 MG TABLET PO SCH (20:28)
[2021-06-14] MEDS: MIRTAZAPINE 30 MG TABLET PO SCH (20:29)
[2021-06-14] MEDS: ZOLPIDEM TARTRATE 10 MG TABLET PO PRN (21:43)
[2021-06-15 00:02] VITALS: BP 134/75
[2021-06-15 08:06] LABS: INR 2.3 (0.9-1.1); PROTHROMBIN TIME 23.1 SEC (9.4-11.6)
[2021-06-15 08:17] VITALS: BP 119/69
[2021-06-15] MEDS: CYCLOBENZAPRINE HCL 10 MG TABLET PO SCH ×2 (08:19→16:31)
[2021-06-15] MEDS: BICTEGRAV/EMTRICIT/TENOFOV ALA 50-200-25 MG TABLET PO SCH (08:19)
[2021-06-15] MEDS: LORazepam 1 MG TABLET PO PRN ×2 (08:40→14:00)
[2021-06-15] MEDS: HALOPERIDOL 5 MG TABLET PO PRN ×2 (08:40→14:00)
[2021-06-15] MEDS: MUPIROCIN CALCIUM 2% 22 GM OINTMENT NASAL SCH ×2 (09:01→16:31)
[2021-06-15 16:02] VITALS: BP 125/93
[2021-06-15] MEDS: NICOTINE 14 MG/24 HOUR PATCH TD PRN (16:37)
[2021-06-15] MEDS ORDERED: WARFARIN SODIUM 5 MG TABLET PO ONE (17:00)
[2021-06-15] MEDS: MIRTAZAPINE 30 MG TABLET PO SCH (20:08)
[2021-06-15] MEDS: OLANZapine 10 MG TABLET PO SCH (20:08)
[2021-06-15] MEDS: ZOLPIDEM TARTRATE 10 MG TABLET PO PRN (20:09)
[2021-06-16 00:24] VITALS: BP 128/79
[2021-06-16 07:54] LABS: INR 2.3 (0.9-1.1); PROTHROMBIN TIME 22.8 SEC (9.4-11.6)
[2021-06-16] MEDS: LORazepam 1 MG TABLET PO PRN ×3 (08:11→18:01)
[2021-06-16] MEDS: BICTEGRAV/EMTRICIT/TENOFOV ALA 50-200-25 MG TABLET PO SCH (08:11)
[2021-06-16] MEDS: CYCLOBENZAPRINE HCL 10 MG TABLET PO SCH ×2 (08:11→16:53)
[2021-06-16] MEDS: HALOPERIDOL 5 MG TABLET PO PRN ×3 (08:12→18:01)
[2021-06-16 08:19] VITALS: BP 129/69
[2021-06-16] MEDS: MAGNESIUM HYDROXIDE SUSPENSION 30 ML UDCUP PO PRN (08:20)
[2021-06-16] MEDS: MUPIROCIN CALCIUM 2% 22 GM OINTMENT NASAL SCH ×2 (09:03→16:53)
[2021-06-16] MEDS: NICOTINE 14 MG/24 HOUR PATCH TD PRN (15:54)
[2021-06-16 16:05] VITALS: BP 118/67
[2021-06-16] MEDS: WARFARIN SODIUM 5 MG TABLET PO SCH (16:53)
[2021-06-16] MEDS: OLANZapine 10 MG TABLET PO SCH (20:20)
[2021-06-16] MEDS: MIRTAZAPINE 30 MG TABLET PO SCH (20:21)
[2021-06-16] MEDS: ZOLPIDEM TARTRATE 10 MG TABLET PO PRN (20:22)
[2021-06-17 06:10] VITALS: BP 124/64
[2021-06-17 08:01] VITALS: BP 140/78
[2021-06-17 08:11] LABS: PROTHROMBIN TIME 19.9 SEC (9.4-11.6)
[2021-06-17] MEDS: MUPIROCIN CALCIUM 2% 22 GM OINTMENT NASAL SCH (09:02)
[2021-06-17] MEDS: BICTEGRAV/EMTRICIT/TENOFOV ALA 50-200-25 MG TABLET PO SCH (09:03)
[2021-06-17] MEDS: CYCLOBENZAPRINE HCL 10 MG TABLET PO SCH ×2 (09:03→16:29)
[2021-06-17] MEDS: HALOPERIDOL 5 MG TABLET PO PRN ×2 (09:10→14:12)
[2021-06-17] MEDS: LORazepam 1 MG TABLET PO PRN ×2 (09:11→14:12)
[2021-06-17 16:01] VITALS: BP 130/72
[2021-06-17] MEDS: WARFARIN SODIUM 5 MG TABLET PO SCH (16:29)
[2021-06-17] MEDS: NICOTINE 14 MG/24 HOUR PATCH TD PRN (16:54)
[2021-06-17] MEDS: MIRTAZAPINE 30 MG TABLET PO SCH (20:29)
[2021-06-17] MEDS: OLANZapine 10 MG TABLET PO SCH (20:29)
[2021-06-17] MEDS: ZOLPIDEM TARTRATE 10 MG TABLET PO PRN (20:52)
[2021-06-18 00:12] VITALS: BP 127/75
[2021-06-18 08:09] VITALS: BP 156/65
[2021-06-18 09:00] VITALS: BP 116/68
[2021-06-18 09:46] LABS: INR 2.1 (0.9-1.1); PROTHROMBIN TIME 20.8 SEC (9.4-11.6)
[2021-06-18] MEDS: BICTEGRAV/EMTRICIT/TENOFOV ALA 50-200-25 MG TABLET PO SCH (10:01)
[2021-06-18] MEDS: HALOPERIDOL 5 MG TABLET PO PRN ×2 (10:01→14:22)
[2021-06-18] MEDS: CYCLOBENZAPRINE HCL 10 MG TABLET PO SCH ×2 (10:01→17:07)
[2021-06-18] MEDS: LORazepam 1 MG TABLET PO PRN ×2 (10:01→14:22)
[2021-06-18] MEDS: NICOTINE 14 MG/24 HOUR PATCH TD PRN (14:22)
[2021-06-18] MEDS: WARFARIN SODIUM 5 MG TABLET PO SCH (17:07)
[2021-06-18] MEDS: MAGNESIUM HYDROXIDE SUSPENSION 30 ML UDCUP PO PRN (17:35)
[2021-06-18] MEDS: OLANZapine 10 MG TABLET PO SCH (20:01)
[2021-06-18] MEDS: MIRTAZAPINE 30 MG TABLET PO SCH (20:01)
[2021-06-18] MEDS: ZOLPIDEM TARTRATE 10 MG TABLET PO PRN (20:37)
[2021-06-19 00:08] VITALS: BP 127/68
[2021-06-19] MEDS: CYCLOBENZAPRINE HCL 10 MG TABLET PO SCH ×2 (08:03→16:04)
[2021-06-19] MEDS: BICTEGRAV/EMTRICIT/TENOFOV ALA 50-200-25 MG TABLET PO SCH (08:03)
[2021-06-19 12:43] VITALS: BP 121/79
[2021-06-19] MEDS: HALOPERIDOL 5 MG TABLET PO PRN (13:31)
[2021-06-19] MEDS: LORazepam 1 MG TABLET PO PRN (13:31)
[2021-06-19] MEDS: WARFARIN SODIUM 5 MG TABLET PO SCH (16:04)
[2021-06-19 16:53] VITALS: BP 113/61
[2021-06-19] MEDS: OLANZapine 10 MG TABLET PO SCH (20:05)
[2021-06-19] MEDS: MIRTAZAPINE 30 MG TABLET PO SCH (20:06)
[2021-06-19] MEDS: ZOLPIDEM TARTRATE 10 MG TABLET PO PRN (20:21)
[2021-06-20 05:15] VITALS: BP 140/84
[2021-06-20 08:05] VITALS: BP 135/87
[2021-06-20] MEDS: BICTEGRAV/EMTRICIT/TENOFOV ALA 50-200-25 MG TABLET PO SCH (09:06)
[2021-06-20] MEDS: CYCLOBENZAPRINE HCL 10 MG TABLET PO SCH ×2 (09:06→16:41)
[2021-06-20] MEDS: HALOPERIDOL 5 MG TABLET PO PRN ×2 (12:07→18:48)
[2021-06-20] MEDS: LORazepam 1 MG TABLET PO PRN ×2 (12:07→18:48)
[2021-06-20] MEDS: NICOTINE 14 MG/24 HOUR PATCH TD PRN (12:07)
[2021-06-20 16:36] VITALS: BP 118/77
[2021-06-20] MEDS: WARFARIN SODIUM 5 MG TABLET PO SCH (16:42)
[2021-06-20] MEDS: ZOLPIDEM TARTRATE 10 MG TABLET PO PRN (20:05)
[2021-06-20] MEDS: MIRTAZAPINE 30 MG TABLET PO SCH (20:05)
[2021-06-20] MEDS: OLANZapine 10 MG TABLET PO SCH (20:05)
[2021-06-21 02:26] VITALS: BP 120/76
[2021-06-21 07:36] LABS: COVID AG,FIA SOURCE NASOPHARYNGEAL
[2021-06-21 08:35] VITALS: BP 130/80
[2021-06-21] MEDS: CYCLOBENZAPRINE HCL 10 MG TABLET PO SCH (08:55)
[2021-06-21] MEDS: BICTEGRAV/EMTRICIT/TENOFOV ALA 50-200-25 MG TABLET PO SCH (08:55)
[2021-06-21] MEDS ORDERED: OLAN10TA74 PO (12:52)
[2021-06-21] MEDS ORDERED: WARF5TAB40 PO (12:55)
[2021-06-21 15:40] VITALS: BP 133/79
== END 2021-06-21 15:45 | disposition home or self-care (01) | DRG 885 ==
LOC: EMS 06:44 → B2X 11:04
PROVIDERS: ADMIT Psychiatry & Neurology Psychiatry; ATTEND Psychiatry & Neurology Psychiatry
DX: F25.9 Schizoaffective disorder, unspecified (principal); B18.1 Chronic viral hepatitis B without delta-agent; I48.20 Chronic atrial fibrillation, unspecified; F41.9 Anxiety disorder, unspecified; R45.850 Homicidal ideations; E66.9 Obesity, unspecified; F10.10 Alcohol abuse, uncomplicated; Z20.822 Contact with and (suspected) exposure to COVID-19; F15.90 Other stimulant use, unspecified, uncomplicated; Z79.01 Long term (current) use of anticoagulants; Z86.718 Personal history of other venous thrombosis and embolism; Z88.5 Allergy status to narcotic agent; Z79.899 Other long term (current) drug therapy; Z68.33 Body mass index [BMI] 33.0-33.9, adult
CPT/HCPCS: 80053; 85025; 85610; 85730; 87081; 99285; G0480; Q9967

== ENCOUNTER 2021-06-29 06:36 | Inpatient (IN) | payer MEDICARE, MEDICAID ==
[~2021-06-29] VITALS: Ht 190.5 cm; Wt 112.5 kg
[~2021-06-29 06:36] MED LIST changes: +OLAN10TA74 PO; -OLAN7.5T22 PO; +WARF5TAB40 PO
[2021-06-29 07:14] LABS: COVID AG,FIA SOURCE NASOPHARYNGEAL
[2021-06-29 07:16] LABS: BASOPHILS % (AUTO) 0.5 % (0.0-2.0); EOSINOPHILS % (AUTO) 0.9 % (1.0-6.0); HEMATOCRIT 34.3 % (41-53); HEMOGLOBIN 11.7 g/dL (13.5-17.5); LYMPHOCYTES # (AUTO) 1.8 K/uL (1.0-4.8); LYMPHOCYTES % (AUTO) 26.5 % (22.0-44.0); MEAN CORPUSCULAR HEMOGLOBIN 32.4 pg (26.0-34.0); MEAN CORPUSCULAR HGB CONC 34.2 G/dL (31.0-37.0); MEAN CORPUSCULAR VOLUME 95 fL (80-100); MONOCYTES # (AUTO) 0.6 K/uL (0.1-1.0); MONOCYTES % (AUTO) 8.3 % (2.0-9.0); NEUTROPHILS # (AUTO) 4.4 K/uL (1.8-7.7); NEUTROPHILS % (AUTO) 63.8 % (40.0-70.0); PLATELET COUNT (AUTO) 103 K/uL (150-450); RED BLOOD CELL COUNT(AUTO) 3.62 MIL/uL (4.50-5.90); RED CELL DISTRIBUTION WIDTH 14.9 % (11.5-14.5)
[2021-06-29 07:29] LABS: ANION GAP 10 mmol/L (8-16); CALCIUM, TOTAL 8.5 mg/dL (8.8-10.5); CARBON DIOXIDE 28 mmol/L (22-29); CHLORIDE 107 mmol/L (98-107); CREATININE 1.22 mg/dL (0.60-1.30); GLOMERULAR FILTR. RATE CALC > 60 mL/min (>60); GLUCOSE,RANDOM 123 mg/dL (70-110); INR 1.2 (0.9-1.1); POTASSIUM 3.6 mmol/L (3.5-5.1); PROTHROMBIN TIME 12.9 SEC (9.4-11.6); SODIUM SERUM 145 mmol/L (136-145); UREA NITROGEN, BLOOD 11 mg/dL (7-18)
[2021-06-29 07:34] LABS: ALANINE AMINOTRANSFERASE 63 U/L (12-78); ALBUMIN 3.8 g/dL (3.4-5.0); ALKALINE PHOSPHATASE 68 U/L (46-116); ASPARTATE AMINOTRANSFERASE 71 U/L (15-37); BILIRUBIN,TOTAL 0.7 mg/dL (0.1-1.0)
[2021-06-29 09:11] LABS: AMPHET/METH SCREEN,URINE POSITIVE (NEGATIVE); BARBITURATE SCREEN, URINE NEGATIVE (NEGATIVE); BENZODIAZEPINES SCREEN,URINE NEGATIVE (NEGATIVE); CANNABINOID SCREEN,URINE NEGATIVE (NEGATIVE); COCAINE SCREEN,URINE NEGATIVE (NEGATIVE); METHADONE SCREEN, URINE NEGATIVE (NEGATIVE); OPIATE SCREEN,URINE NEGATIVE (NEGATIVE); PHENCYCLIDINE SCREEN,URINE NEGATIVE (NEGATIVE)
[2021-06-29 17:04] VITALS: BP 151/88
[2021-06-29] MEDS ORDERED: *CLINICAL-WARFARIN SODIUM DOSING CLINICAL ONE (17:45)
[2021-06-29] MEDS ORDERED: WARFARIN SODIUM 7.5 MG TABLET PO ONE (18:00)
[2021-06-29] MEDS: MIRTAZAPINE 30 MG TABLET PO SCH (20:37)
[2021-06-29] MEDS: OLANZapine 10 MG TABLET PO SCH (20:38)
[2021-06-30 05:09] VITALS: BP 124/66
[2021-06-30] MEDS ORDERED: BACITRACIN 28 GM OINTMENT TP PRN (07:00)
[2021-06-30] MEDS ORDERED: MAGNESIUM HYDROXIDE SUSPENSION 30 ML UDCUP PO PRN (07:00)
[2021-06-30] MEDS ORDERED: MAG HYDROX/AL HYDROX/SIMETH ES 30 ML SUSPENSION UDCUP PO PRN (07:00)
[2021-06-30] MEDS ORDERED: BENZOCAINE/MENTHOL LOZENGE PO PRN (07:00)
[2021-06-30] MEDS ORDERED: ALBUTEROL SULFATE HFA 90 MCG/PUFF 8 GM INHALER IH PRN (07:00)
[2021-06-30] MEDS ORDERED: LOPERAMIDE HCL 2 MG CAPSULE PO PRN (07:00)
[2021-06-30] MEDS ORDERED: CloNIDine HCL 0.1 MG TABLET PO PRN (07:00)
[2021-06-30] MEDS ORDERED: OMEPRAZOLE 20 MG CAPSULE PO PRN (07:00)
[2021-06-30] MEDS ORDERED: ACETAMINOPHEN 325 MG TABLET PO PRN (07:00)
[2021-06-30] MEDS ORDERED: DOCUSATE SODIUM 100 MG CAPSULE PO PRN (07:00)
[2021-06-30] MEDS ORDERED: PETROLATUM,WHITE 28 GM JELLY TP PRN (07:00)
[2021-06-30] MEDS ORDERED: ONDANSETRON HCL 4 MG TABLET PO PRN (07:00)
[2021-06-30 08:00] LABS: INR 1.1 (0.9-1.1); PROTHROMBIN TIME 11.6 SEC (9.4-11.6)
[2021-06-30 08:18] VITALS: BP 102/62
[2021-06-30] MEDS: CYCLOBENZAPRINE HCL 10 MG TABLET PO SCH ×2 (09:12→16:17)
[2021-06-30] MEDS: NICOTINE 14 MG/24 HOUR PATCH TD SCH (09:12)
[2021-06-30] MEDS: BICTEGRAV/EMTRICIT/TENOFOV ALA 50-200-25 MG TABLET PO SCH (13:20)
[2021-06-30 16:22] VITALS: BP 127/69
[2021-06-30] MEDS: WARFARIN SODIUM 7.5 MG TABLET PO SCH (16:30)
[2021-06-30] MEDS: LORazepam 2 MG TABLET PO PRN (17:13)
[2021-06-30] MEDS: OLANZapine 10 MG TABLET PO SCH (20:09)
[2021-06-30] MEDS: MIRTAZAPINE 30 MG TABLET PO SCH (20:10)
[2021-07-01 00:57] VITALS: BP 130/81
[2021-07-01 08:13] LABS: INR 1.1 (0.9-1.1); PROTHROMBIN TIME 12.1 SEC (9.4-11.6)
[2021-07-01 08:21] VITALS: BP 118/55
[2021-07-01] MEDS: BICTEGRAV/EMTRICIT/TENOFOV ALA 50-200-25 MG TABLET PO SCH (08:48)
[2021-07-01] MEDS: CYCLOBENZAPRINE HCL 10 MG TABLET PO SCH ×2 (08:48→16:06)
[2021-07-01] MEDS: NICOTINE 14 MG/24 HOUR PATCH TD SCH (08:49)
[2021-07-01] MEDS: LORazepam 2 MG TABLET PO PRN ×2 (08:56→20:07)
[2021-07-01] MEDS: WARFARIN SODIUM 7.5 MG TABLET PO SCH (16:06)
[2021-07-01 16:08] VITALS: BP 104/67
[2021-07-01] MEDS: OLANZapine 10 MG TABLET PO SCH (20:07)
[2021-07-01] MEDS: MIRTAZAPINE 30 MG TABLET PO SCH (20:07)
[2021-07-02 00:09] VITALS: BP 109/64
[2021-07-02 08:02] VITALS: BP 123/64
[2021-07-02 08:18] LABS: INR 1.2 (0.9-1.1)
[2021-07-02] MEDS: CYCLOBENZAPRINE HCL 10 MG TABLET PO SCH ×2 (08:40→16:22)
[2021-07-02] MEDS: BICTEGRAV/EMTRICIT/TENOFOV ALA 50-200-25 MG TABLET PO SCH (08:41)
[2021-07-02] MEDS: MULTIVITAMINS WITH IRON TABLET PO SCH (08:41)
[2021-07-02] MEDS: NICOTINE 14 MG/24 HOUR PATCH TD SCH (08:41)
[2021-07-02] MEDS: THIAMINE 100 MG TABLET PO SCH (08:41)
[2021-07-02] MEDS: FOLIC ACID 1 MG TABLET PO SCH (08:41)
[2021-07-02] MEDS: CYANOCOBALAMIN 100 MCG TABLET PO SCH (08:41)
[2021-07-02 16:00] VITALS: BP 127/85
[2021-07-02] MEDS ORDERED: WARFARIN SODIUM 5 MG TABLET PO SCH (17:00)
[2021-07-02] MEDS ORDERED: WARFARIN SODIUM 7.5 MG TABLET PO ONE (17:00)
[2021-07-02] MEDS: MIRTAZAPINE 30 MG TABLET PO SCH (20:08)
[2021-07-02] MEDS: OLANZapine 10 MG TABLET PO SCH (20:08)
[2021-07-02] MEDS ORDERED: OLANZapine 5 MG TABLET PO SCH (21:00)
[2021-07-03 00:03] VITALS: BP 120/68
[2021-07-03 07:47] LABS: INR 1.3 (0.9-1.1)
[2021-07-03 08:20] VITALS: BP 123/60
[2021-07-03] MEDS: MULTIVITAMINS WITH IRON TABLET PO SCH (08:23)
[2021-07-03] MEDS: BICTEGRAV/EMTRICIT/TENOFOV ALA 50-200-25 MG TABLET PO SCH (08:23)
[2021-07-03] MEDS: FOLIC ACID 1 MG TABLET PO SCH (08:24)
[2021-07-03] MEDS: THIAMINE 100 MG TABLET PO SCH (08:24)
[2021-07-03] MEDS: CYANOCOBALAMIN 100 MCG TABLET PO SCH (08:24)
[2021-07-03] MEDS: CYCLOBENZAPRINE HCL 10 MG TABLET PO SCH ×2 (08:24→16:12)
[2021-07-03] MEDS: NICOTINE 14 MG/24 HOUR PATCH TD SCH (08:25)
[2021-07-03] MEDS: LORazepam 2 MG TABLET PO PRN (09:38)
[2021-07-03 16:03] VITALS: BP 110/69
[2021-07-03] MEDS ORDERED: WARFARIN SODIUM 7.5 MG TABLET PO ONE (17:00)
[2021-07-03] MEDS: OLANZapine 10 MG TABLET PO SCH (20:13)
[2021-07-03] MEDS: MIRTAZAPINE 30 MG TABLET PO SCH (20:13)
[2021-07-03] MEDS: ZOLPIDEM TARTRATE 10 MG TABLET PO PRN (20:19)
[2021-07-04 00:05] VITALS: BP 117/76
[2021-07-04 08:10] LABS: COVID AG,FIA SOURCE NASOPHARYNGEAL
[2021-07-04] MEDS: BICTEGRAV/EMTRICIT/TENOFOV ALA 50-200-25 MG TABLET PO SCH (08:25)
[2021-07-04] MEDS: CYANOCOBALAMIN 100 MCG TABLET PO SCH (08:26)
[2021-07-04] MEDS: MULTIVITAMINS WITH IRON TABLET PO SCH (08:26)
[2021-07-04] MEDS: FOLIC ACID 1 MG TABLET PO SCH (08:26)
[2021-07-04] MEDS: THIAMINE 100 MG TABLET PO SCH (08:26)
[2021-07-04] MEDS: CYCLOBENZAPRINE HCL 10 MG TABLET PO SCH ×2 (08:26→16:04)
[2021-07-04] MEDS: NICOTINE 14 MG/24 HOUR PATCH TD SCH (08:27)
[2021-07-04 10:35] VITALS: BP 129/66
[2021-07-04 10:39] VITALS: BP 129/66
[2021-07-04] MEDS: LORazepam 2 MG TABLET PO PRN (11:16)
[2021-07-04 16:00] VITALS: BP 121/67
[2021-07-04] MEDS: WARFARIN SODIUM 7.5 MG TABLET PO SCH (16:04)
[2021-07-04] MEDS: MIRTAZAPINE 30 MG TABLET PO SCH (20:11)
[2021-07-04] MEDS: OLANZapine 10 MG TABLET PO SCH (20:12)
[2021-07-04] MEDS: ZOLPIDEM TARTRATE 10 MG TABLET PO PRN (20:59)
[2021-07-05 00:17] VITALS: BP 130/70
[2021-07-05 08:09] VITALS: BP 118/81
[2021-07-05] MEDS: CYCLOBENZAPRINE HCL 10 MG TABLET PO SCH ×2 (08:17→16:18)
[2021-07-05] MEDS: CYANOCOBALAMIN 100 MCG TABLET PO SCH (08:18)
[2021-07-05] MEDS: THIAMINE 100 MG TABLET PO SCH (08:18)
[2021-07-05] MEDS: FOLIC ACID 1 MG TABLET PO SCH (08:18)
[2021-07-05] MEDS: MULTIVITAMINS WITH IRON TABLET PO SCH (08:18)
[2021-07-05] MEDS: NICOTINE 14 MG/24 HOUR PATCH TD SCH (08:26)
[2021-07-05 08:42] LABS: INR 1.3 (0.9-1.1); PROTHROMBIN TIME 13.4 SEC (9.4-11.6)
[2021-07-05] MEDS: BICTEGRAV/EMTRICIT/TENOFOV ALA 50-200-25 MG TABLET PO SCH (10:01)
[2021-07-05] MEDS: HALOPERIDOL 5 MG TABLET PO PRN ×2 (12:55→17:04)
[2021-07-05 16:10] VITALS: BP 118/80
[2021-07-05] MEDS: WARFARIN SODIUM 7.5 MG TABLET PO SCH (16:18)
[2021-07-05] MEDS: MIRTAZAPINE 30 MG TABLET PO SCH (20:09)
[2021-07-05] MEDS: OLANZapine 10 MG TABLET PO SCH (20:09)
[2021-07-05] MEDS: ZOLPIDEM TARTRATE 10 MG TABLET PO PRN (20:10)
[2021-07-06 05:29] VITALS: BP 109/62
[2021-07-06 08:09] VITALS: BP 105/59
[2021-07-06] MEDS: MULTIVITAMINS WITH IRON TABLET PO SCH (08:18)
[2021-07-06] MEDS: FOLIC ACID 1 MG TABLET PO SCH (08:18)
[2021-07-06] MEDS: BICTEGRAV/EMTRICIT/TENOFOV ALA 50-200-25 MG TABLET PO SCH (08:18)
[2021-07-06] MEDS: CYANOCOBALAMIN 100 MCG TABLET PO SCH (08:18)
[2021-07-06] MEDS: THIAMINE 100 MG TABLET PO SCH (08:18)
[2021-07-06] MEDS: CYCLOBENZAPRINE HCL 10 MG TABLET PO SCH ×2 (08:52→17:04)
[2021-07-06] MEDS: NICOTINE 14 MG/24 HOUR PATCH TD SCH (08:53)
[2021-07-06] MEDS: HALOPERIDOL 5 MG TABLET PO PRN (14:37)
[2021-07-06 16:05] VITALS: BP 137/75
[2021-07-06] MEDS: WARFARIN SODIUM 7.5 MG TABLET PO SCH (17:04)
[2021-07-06] MEDS: OLANZapine 10 MG TABLET PO SCH (20:50)
[2021-07-06] MEDS: MIRTAZAPINE 30 MG TABLET PO SCH (20:51)
[2021-07-06] MEDS: ZOLPIDEM TARTRATE 10 MG TABLET PO PRN (20:55)
[2021-07-07 00:53] VITALS: BP 121/76
[2021-07-07 08:12] VITALS: BP 128/79
[2021-07-07] MEDS: THIAMINE 100 MG TABLET PO SCH (08:32)
[2021-07-07] MEDS: CYCLOBENZAPRINE HCL 10 MG TABLET PO SCH ×2 (08:32→15:59)
[2021-07-07] MEDS: MULTIVITAMINS WITH IRON TABLET PO SCH (08:32)
[2021-07-07] MEDS: FOLIC ACID 1 MG TABLET PO SCH (08:32)
[2021-07-07] MEDS: CYANOCOBALAMIN 100 MCG TABLET PO SCH (08:33)
[2021-07-07] MEDS: NICOTINE 14 MG/24 HOUR PATCH TD SCH (08:33)
[2021-07-07] MEDS: BICTEGRAV/EMTRICIT/TENOFOV ALA 50-200-25 MG TABLET PO SCH (08:33)
[2021-07-07] MEDS: HALOPERIDOL 5 MG TABLET PO PRN (15:03)
[2021-07-07] MEDS: WARFARIN SODIUM 7.5 MG TABLET PO SCH (15:59)
[2021-07-07 16:03] VITALS: BP 119/72
[2021-07-07] MEDS: MIRTAZAPINE 30 MG TABLET PO SCH (20:05)
[2021-07-07] MEDS: OLANZapine 10 MG TABLET PO SCH (20:05)
[2021-07-07] MEDS: ZOLPIDEM TARTRATE 10 MG TABLET PO PRN (20:06)
[2021-07-08 06:15] VITALS: BP 109/70
[2021-07-08 08:01] VITALS: BP 106/62
[2021-07-08] MEDS: CYCLOBENZAPRINE HCL 10 MG TABLET PO SCH ×2 (08:18→16:44)
[2021-07-08] MEDS: BICTEGRAV/EMTRICIT/TENOFOV ALA 50-200-25 MG TABLET PO SCH (08:18)
[2021-07-08] MEDS: MULTIVITAMINS WITH IRON TABLET PO SCH (08:18)
[2021-07-08] MEDS: CYANOCOBALAMIN 100 MCG TABLET PO SCH (08:18)
[2021-07-08] MEDS: THIAMINE 100 MG TABLET PO SCH (08:18)
[2021-07-08] MEDS: NICOTINE 14 MG/24 HOUR PATCH TD SCH (08:18)
[2021-07-08] MEDS: FOLIC ACID 1 MG TABLET PO SCH (08:18)
[2021-07-08] MEDS: HALOPERIDOL 5 MG TABLET PO PRN ×3 (08:30→18:14)
[2021-07-08 16:09] VITALS: BP 120/70
[2021-07-08] MEDS: WARFARIN SODIUM 7.5 MG TABLET PO SCH (16:45)
[2021-07-08] MEDS: ZOLPIDEM TARTRATE 10 MG TABLET PO PRN (20:04)
[2021-07-08] MEDS: OLANZapine 10 MG TABLET PO SCH (20:04)
[2021-07-08] MEDS: MIRTAZAPINE 30 MG TABLET PO SCH (20:06)
[2021-07-09 00:26] VITALS: BP 118/69
[2021-07-09 08:01] VITALS: BP 127/87
[2021-07-09] MEDS: BICTEGRAV/EMTRICIT/TENOFOV ALA 50-200-25 MG TABLET PO SCH (08:37)
[2021-07-09] MEDS: CYANOCOBALAMIN 100 MCG TABLET PO SCH (08:37)
[2021-07-09] MEDS: CYCLOBENZAPRINE HCL 10 MG TABLET PO SCH (08:38)
[2021-07-09] MEDS: THIAMINE 100 MG TABLET PO SCH (08:38)
[2021-07-09] MEDS: FOLIC ACID 1 MG TABLET PO SCH (08:38)
[2021-07-09] MEDS: NICOTINE 14 MG/24 HOUR PATCH TD SCH (08:43)
[2021-07-09] MEDS: MULTIVITAMINS WITH IRON TABLET PO SCH (09:12)
[2021-07-09] MEDS ORDERED: OLAN10TA74 PO ×2 (11:47→11:48)
[2021-07-09] MEDS ORDERED: OLAN5TAB52 PO (11:48)
[2021-07-09] MEDS ORDERED: WARFARIN SODIUM 5 MG TABLET PO SCH (17:00)
== END 2021-07-09 14:51 | disposition home or self-care (01) | DRG 885 ==
LOC: EMS 06:37 → B2X 11:53
PROVIDERS: ADMIT Psychiatry & Neurology Psychiatry; ATTEND Psychiatry & Neurology Psychiatry
DX: F25.9 Schizoaffective disorder, unspecified (principal); B18.1 Chronic viral hepatitis B without delta-agent; R45.851 Suicidal ideations; I48.20 Chronic atrial fibrillation, unspecified; I10 Essential (primary) hypertension; K59.00 Constipation, unspecified; F41.9 Anxiety disorder, unspecified; G47.00 Insomnia, unspecified; E66.9 Obesity, unspecified; Y90.0 Blood alcohol level of less than 20 mg/100 ml; F15.10 Other stimulant abuse, uncomplicated; F10.10 Alcohol abuse, uncomplicated; Z20.822 Contact with and (suspected) exposure to COVID-19; Z86.718 Personal history of other venous thrombosis and embolism; Z79.01 Long term (current) use of anticoagulants; Z68.30 Body mass index [BMI] 30.0-30.9, adult; Z88.6 Allergy status to analgesic agent; Z71.41 Alcohol abuse counseling and surveillance of alcoholic; Z71.51 Drug abuse counseling and surveillance of drug abuser; Z72.0 Tobacco use; Z71.6 Tobacco abuse counseling
CPT/HCPCS: 80053; 85025; 85610; 85730; 87081; 99285; G0480; Q9967

== ENCOUNTER 2024-08-02 12:52 | Inpatient (IN) | payer OTHER, MEDICAID ==
[~2024-08-02] VITALS: Ht 185.4 cm; Wt 100.0 kg
[~2024-08-02 12:52] MED LIST changes: +CYCL-448 PO; -CYCL10TA17 PO; +MIRT-149 PO; -MIRT30 PO; -WARF5TAB40 PO; +WARF5TAB9 PO
[2024-08-02 14:42] LABS: BASOPHILS % (AUTO) 0.7 % (0.0-2.0); EOSINOPHILS % (AUTO) 3.9 % (1.0-6.0); HEMATOCRIT 42.2 % (41-53); HEMOGLOBIN 14.1 g/dL (13.5-17.5); LYMPHOCYTES # (AUTO) 1.7 K/uL (1.0-4.8); LYMPHOCYTES % (AUTO) 44.4 % (22.0-44.0); MEAN CORPUSCULAR HEMOGLOBIN 33.6 pg (26.0-34.0); MEAN CORPUSCULAR HGB CONC 33.5 G/dL (31.0-37.0); MEAN CORPUSCULAR VOLUME 100 fL (80-100); MONOCYTES # (AUTO) 0.5 K/uL (0.1-1.0); MONOCYTES % (AUTO) 12.6 % (2.0-9.0); NEUTROPHILS # (AUTO) 1.5 K/uL (1.8-7.7); NEUTROPHILS % (AUTO) 38.4 % (40.0-70.0); PLATELET COUNT (AUTO) 72 K/uL (150-450); RED BLOOD CELL COUNT(AUTO) 4.21 MIL/uL (4.50-5.90); RED CELL DISTRIBUTION WIDTH 15.5 % (11.5-14.5); WHITE BLOOD COUNT (AUTO) 3.9 K/uL (4.5-11.0)
[2024-08-02 14:45] LABS: ANION GAP 11 mmol/L (8-16); CALCIUM, TOTAL 8.3 mg/dL (8.8-10.5); CARBON DIOXIDE 26 mmol/L (22-29); CHLORIDE 103 mmol/L (98-107); CREATININE 1.04 mg/dL (0.60-1.30); GLOMERULAR FILTR. RATE CALC > 60 mL/min (>60); GLUCOSE,RANDOM 99 mg/dL (70-110); POTASSIUM 3.2 mmol/L (3.5-5.1); SODIUM SERUM 140 mmol/L (136-145); UREA NITROGEN, BLOOD 13 mg/dL (7-18)
[2024-08-02 14:47] LABS: ALCOHOL, BLOOD (SERUM) 123 mg/dL (0-10)
[2024-08-02] MEDS ORDERED: METO25 PO (15:06)
[2024-08-02] MEDS ORDERED: APIX5TAB PO (15:07)
[2024-08-02 15:11] LABS: PLATELET MORPHOLOGY COMMENT NOTE; RBC MORPHOLOGY COMMENT NORMAL RBC MORPH
[2024-08-02] MEDS: DiphenhydrAMINE HCL 25 MG CAPSULE PO ONE (15:34)
[2024-08-02] MEDS: LORazepam 2 MG TABLET PO ONE (15:35)
[2024-08-02] MEDS: HALOPERIDOL 5 MG TABLET PO ONE (15:35)
[2024-08-02 15:58] LABS: COVID AG,FIA SOURCE NASAL SWAB
[2024-08-02 16:08] LABS: ALCOHOL, URINE DRUG SCREEN POSITIVE (NEGATIVE); AMPHET/METH SCREEN,URINE NEGATIVE (NEGATIVE); BARBITURATE SCREEN, URINE NEGATIVE (NEGATIVE); BENZODIAZEPINES SCREEN,URINE POSITIVE (NEGATIVE); CANNABINOID SCREEN,URINE NEGATIVE (NEGATIVE); COCAINE SCREEN,URINE NEGATIVE (NEGATIVE); METHADONE SCREEN, URINE NEGATIVE (NEGATIVE); OPIATE SCREEN,URINE NEGATIVE (NEGATIVE); PHENCYCLIDINE SCREEN,URINE NEGATIVE (NEGATIVE)
[2024-08-02 16:24] LABS: SARS-COV2 (COVID) ANTIGEN,FIA Negative (Negative)
[2024-08-02] MEDS: POTASSIUM CHLORIDE 20 MEQ ER TABLET PO ONE (22:20)
[2024-08-03] VITALS (9 sets, daily range): BP systolic 121–141; BP diastolic 36–96; PULSE 82–93; RESP 17–19; TEMP 94.8–98; O2SAT 97–98
[2024-08-03] MEDS: NICOTINE 14 MG/24 HOUR PATCH TD SCH (09:09)
[2024-08-03] MEDS ORDERED: ALBUTEROL SULFATE HFA 90 MCG/PUFF 8 GM INHALER IH PRN (09:30)
[2024-08-03] MEDS ORDERED: IBUPROFEN 400 MG TABLET PO PRN (09:30)
[2024-08-03] MEDS ORDERED: MAGNESIUM HYDROXIDE SUSPENSION 30 ML UDCUP PO PRN (09:30)
[2024-08-03] MEDS ORDERED: GuaiFENesin/D-METHORPHAN [SUGAR-FREE] 200-20MG/10 ML SYRUP UDCUP PO PRN (09:30)
[2024-08-03] MEDS ORDERED: NICOTINE 14 MG/24 HOUR PATCH TD PRN (09:30)
[2024-08-03] MEDS ORDERED: MAG HYDROX/ALUMINUM HYD/SIMETH ES 30 ML SUSPENSION UDCUP PO PRN (09:30)
[2024-08-03] MEDS ORDERED: ONDANSETRON 4 MG TABLET PO PRN (09:30)
[2024-08-03] MEDS ORDERED: LOPERAMIDE HCL 2 MG CAPSULE PO PRN (09:30)
[2024-08-03] MEDS ORDERED: CloNIDine HCL 0.1 MG TABLET PO PRN (09:30)
[2024-08-03] MEDS ORDERED: PETROLATUM,WHITE 28 GM JELLY TP PRN (09:30)
[2024-08-03] MEDS ORDERED: ACETAMINOPHEN 325 MG TABLET PO PRN (09:30)
[2024-08-03] MEDS: LORazepam 2 MG TABLET PO PRN (09:31)
[2024-08-03] MEDS: HALOPERIDOL 5 MG TABLET PO PRN (09:31)
[2024-08-03] MEDS: METOPROLOL TARTRATE 25 MG TABLET PO SCH (16:06)
[2024-08-03] MEDS: APIXABAN 5 MG TABLET PO SCH (16:06)
[2024-08-03] MEDS ORDERED: LURA40TA2 PO (16:08)
[2024-08-03] MEDS ORDERED: LORazepam 2 MG TABLET PO PRN (16:15)
[2024-08-03] MEDS: LURASIDONE HCL 40 MG TABLET PO SCH (17:03)
[2024-08-03] MEDS ORDERED: MIRTAZAPINE 30 MG TABLET PO SCH (21:00)
[2024-08-03] MEDS: MIRTAZAPINE 15 MG TABLET PO SCH (22:29)
[2024-08-04] MEDS ORDERED: LORazepam 2 MG TABLET PO PRN (07:00)
[2024-08-04 08:53] VITALS: BP 115/78; PULSE 62; RESP 17; TEMP 98.1; O2SAT 97
[2024-08-04] MEDS: LORazepam 2 MG TABLET PO SCH (09:15)
[2024-08-04] MEDS: BICTEGRAV/EMTRICIT/TENOFOV ALA 50-200-25 MG TABLET PO SCH (09:21)
[2024-08-04 10:09] LABS: HEMOGLOBIN A1C 5.3 % (3.8-5.6)
[2024-08-04 13:04] LABS: CHOL/HDL RATIO 2.1 (4.2-7.3); POTASSIUM 4.7 mmol/L (3.5-5.1); THYROID STIMULATING HORMONE 3.27 uIU/mL (0.36-3.74)
[2024-08-04] MEDS: BACITRACIN 28 GM OINTMENT TP SCH (16:33)
[2024-08-04 19:10] VITALS: BP 119/82; PULSE 80; RESP 20; TEMP 97.7; O2SAT 99
[2024-08-04 20:00] VITALS: BP 121/74; PULSE 100; RESP 16; TEMP 97.4; O2SAT 96
[2024-08-04] MEDS: ZOLPIDEM TARTRATE 10 MG TABLET PO PRN (20:24)
[2024-08-05 08:28] VITALS: TEMP 98.6
[2024-08-05 10:06] VITALS: BP 129/81; PULSE 91; RESP 16; TEMP 98.6; O2SAT 97
[2024-08-05 16:03] VITALS: BP 143/73; PULSE 91; RESP 18; TEMP 97.5; O2SAT 98
[2024-08-05 19:11] VITALS: BP 143/97; PULSE 91; RESP 18; TEMP 97.6; O2SAT 98
[2024-08-05 20:14] VITALS: BP 134/80; PULSE 88; RESP 18; TEMP 98; O2SAT 99
[2024-08-05 21:00] VITALS: BP 113/64; PULSE 80; RESP 16; TEMP 97.8; O2SAT 97
[2024-08-06] MEDS ORDERED: LORazepam 1 MG TABLET PO PRN (07:00)
[2024-08-06] MEDS: LORazepam 1 MG TABLET PO SCH (08:22)
[2024-08-06 08:27] VITALS: BP 129/67; PULSE 95; RESP 18; TEMP 97.9; O2SAT 96
[2024-08-06 11:00] LABS: APPEARANCE,URINE CLEAR (CLEAR); BILIRUBIN,URINE NEGATIVE (NEGATIVE); COLOR,URINE LIGHT YELLOW (YELLOW); GLUCOSE, URINE (UA) 300-500 mg/dL (NEGATIVE); KETONES,URINE NEGATIVE (NEGATIVE); LEUKOCYTE ESTERASE ,URINE NEGATIVE (NEGATIVE); NITRATE,URINE NEGATIVE (NEGATIVE); OCCULT BLOOD,URINE NEGATIVE (NEGATIVE); PROTEIN,URINE NEGATIVE (NEGATIVE); SPECIFIC GRAVITIY, URINE 1.011 (1.003-1.030); UROBILINOGEN,URINE <=1.0 mg/dL (<=1.0)
[2024-08-06 11:57] LABS: BACTERIA,URINE None Seen /HPF (None Seen); RBC,URINE None Seen /HPF (0-2); WBC,URINE None Seen /HPF (0-5)
[2024-08-06 16:32] VITALS: BP 131/82; PULSE 88; RESP 18; TEMP 97.8
[2024-08-06 20:27] VITALS: BP 105/62; PULSE 77; RESP 16; TEMP 97.6; O2SAT 95
[2024-08-07] MEDS: LORazepam 1 MG TABLET PO PRN (08:14)
[2024-08-07] MEDS: DOCUSATE SODIUM 100 MG CAPSULE PO PRN (10:11)
[2024-08-07 10:50] VITALS: BP 108/71; PULSE 88; RESP 17; TEMP 97.7; O2SAT 98
[2024-08-07 20:17] VITALS: BP 115/69; PULSE 77; RESP 18; TEMP 97.4; O2SAT 100
[2024-08-08 09:24] VITALS: BP 117/66; PULSE 69; RESP 17; TEMP 98; O2SAT 100
[2024-08-08] MEDS ORDERED: METO25 PO (09:50)
[2024-08-08] MEDS ORDERED: LURA40TA2 PO (09:50)
[2024-08-08] MEDS ORDERED: BICT1TAB PO (09:50)
[2024-08-08] MEDS ORDERED: MIRT-89 PO (09:50)
[2024-08-08] MEDS ORDERED: APIX5TAB PO (09:50)
== END 2024-08-08 12:25 | disposition home or self-care (01) | DRG 885 ==
LOC: EMS 12:54 → B3A 08-03 00:12
PROVIDERS: ADMIT Psychiatry & Neurology Child & Adolescent Psychiatry; ATTEND Psychiatry & Neurology Child & Adolescent Psychiatry
PROC: GZ56ZZZ Individual Psychotherapy, Supportive (ICD-10-PCS; principal; 2024-08-03)
PROC: GZHZZZZ Group Psychotherapy (ICD-10-PCS; 2024-08-03)
DX: F25.1 Schizoaffective disorder, depressive type (principal); R45.851 Suicidal ideations; I48.20 Chronic atrial fibrillation, unspecified; I10 Essential (primary) hypertension; Z20.822 Contact with and (suspected) exposure to COVID-19; F10.20 Alcohol dependence, uncomplicated; Y90.6 Blood alcohol level of 120-199 mg/100 ml; Z86.718 Personal history of other venous thrombosis and embolism; Z79.01 Long term (current) use of anticoagulants; Z79.899 Other long term (current) drug therapy; Z88.5 Allergy status to narcotic agent
CPT/HCPCS: 80048; 80061; 80307; 81001; 83036; 84132; 84443; 85025; 93005; G0480

== ENCOUNTER 2024-08-28 01:13 | Emergency (ER) | payer MEDICARE, MEDICAID ==
[~2024-08-28] VITALS: Ht 182.9 cm; Wt 113.6 kg
[~2024-08-28 01:13] MED LIST changes: +APIX5TAB PO; -CYCL-448 PO; +LURA40TA2 PO; +METO25 PO; -MIRT-149 PO; +MIRT-89 PO; -OLAN10TA74 PO; -WARF5TAB9 PO; -WARF7.5T7 PO
[2024-08-28 02:38] VITALS: TEMP 98
[2024-08-28 03:16] LABS: COVID AG,FIA SOURCE NASAL SWAB
[2024-08-28 03:18] LABS: BASOPHILS % (AUTO) 0.9 % (0.0-2.0); EOSINOPHILS % (AUTO) 4.7 % (1.0-6.0); HEMATOCRIT 38.4 % (41-53); HEMOGLOBIN 13.1 g/dL (13.5-17.5); LYMPHOCYTES # (AUTO) 1.3 K/uL (1.0-4.8); LYMPHOCYTES % (AUTO) 33.4 % (22.0-44.0); MEAN CORPUSCULAR HGB CONC 34.1 G/dL (31.0-37.0); MEAN CORPUSCULAR VOLUME 100 fL (80-100); MONOCYTES # (AUTO) 0.5 K/uL (0.1-1.0); MONOCYTES % (AUTO) 11.8 % (2.0-9.0); NEUTROPHILS # (AUTO) 1.9 K/uL (1.8-7.7); NEUTROPHILS % (AUTO) 49.2 % (40.0-70.0); RED BLOOD CELL COUNT(AUTO) 3.86 MIL/uL (4.50-5.90); RED CELL DISTRIBUTION WIDTH 14.1 % (11.5-14.5); WHITE BLOOD COUNT (AUTO) 3.8 K/uL (4.5-11.0)
[2024-08-28 03:31] LABS: PLATELET COUNT (AUTO) 83 K/uL (150-450)
[2024-08-28 03:33] LABS: ALCOHOL, BLOOD (SERUM) < 3 mg/dL (0-10); ANION GAP 9 mmol/L (8-16); CALCIUM, TOTAL 8.1 mg/dL (8.8-10.5); CARBON DIOXIDE 26 mmol/L (22-29); CHLORIDE 104 mmol/L (98-107); CREATININE 1.06 mg/dL (0.60-1.30); GLOMERULAR FILTR. RATE CALC > 60 mL/min (>60); GLUCOSE,RANDOM 118 mg/dL (70-110); POTASSIUM 3.8 mmol/L (3.5-5.1); SODIUM SERUM 138 mmol/L (136-145); UREA NITROGEN, BLOOD 18 mg/dL (7-18)
[2024-08-28 03:43] LABS: SARS-COV2 (COVID) ANTIGEN,FIA Negative (Negative)
[2024-08-28 05:53] LABS: APPEARANCE,URINE CLEAR (CLEAR); BILIRUBIN,URINE NEGATIVE (NEGATIVE); COLOR,URINE LIGHT YELLOW (YELLOW); GLUCOSE, URINE (UA) NEGATIVE (NEGATIVE); KETONES,URINE NEGATIVE (NEGATIVE); NITRATE,URINE NEGATIVE (NEGATIVE); OCCULT BLOOD,URINE NEGATIVE (NEGATIVE); PROTEIN,URINE NEGATIVE (NEGATIVE); SPECIFIC GRAVITIY, URINE 1.014 (1.003-1.030); UROBILINOGEN,URINE <=1.0 mg/dL (<=1.0)
[2024-08-28 05:55] LABS: LEUKOCYTE ESTERASE ,URINE NEGATIVE (NEGATIVE)
[2024-08-28 05:59] LABS: AMPHET/METH SCREEN,URINE NEGATIVE (NEGATIVE); BARBITURATE SCREEN, URINE NEGATIVE (NEGATIVE); BENZODIAZEPINES SCREEN,URINE NEGATIVE (NEGATIVE); CANNABINOID SCREEN,URINE NEGATIVE (NEGATIVE); COCAINE SCREEN,URINE NEGATIVE (NEGATIVE); METHADONE SCREEN, URINE NEGATIVE (NEGATIVE); OPIATE SCREEN,URINE NEGATIVE (NEGATIVE); PHENCYCLIDINE SCREEN,URINE NEGATIVE (NEGATIVE)
[2024-08-28 06:00] LABS: ALCOHOL, URINE DRUG SCREEN NEGATIVE (NEGATIVE)
[2024-08-28 09:25] VITALS: BP 129/73; PULSE 76; RESP 18; O2SAT 99
== END 2024-08-28 09:56 | disposition home or self-care (01) ==
LOC: EMS 01:13
DX: F25.0 Schizoaffective disorder, bipolar type (principal); R45.851 Suicidal ideations; F17.290 Nicotine dependence, other tobacco product, uncomplicated; F17.210 Nicotine dependence, cigarettes, uncomplicated; Z88.5 Allergy status to narcotic agent; Z79.01 Long term (current) use of anticoagulants; Z79.899 Other long term (current) drug therapy; Z20.822 Contact with and (suspected) exposure to COVID-19
CPT/HCPCS: 99283; 87426; 80048; 81003; 85025; 36415; 80307; G0480

== ENCOUNTER 2025-02-10 23:23 | Emergency (ER) | payer MEDICARE, MEDICAID ==
[~2025-02-10] VITALS: Ht 185.4 cm; Wt 95.0 kg
[~2025-02-10 23:23] MED LIST changes: +ARIP30TA PO; +BENZ0.5T52 PO; +DILT-39 PO; +DULA0.75 SQ; +FOLI-130 PO; -LURA40TA2 PO; +MAGN250T9 PO; +MELA5TAB40 PO; -METO25 PO; -MIRT-89 PO; +THIA100T92 PO; +[UNRECOGNIZED DRUG - CODE] PO
[2025-02-10 23:47] VITALS: TEMP 97.9
[2025-02-11 04:06] VITALS: BP 112/64; PULSE 92; RESP 6; O2SAT 95
== END 2025-02-11 05:04 | disposition home or self-care (01) ==
LOC: EMS 23:23
DX: F10.129 Alcohol abuse with intoxication, unspecified (principal); F31.9 Bipolar disorder, unspecified; I48.91 Unspecified atrial fibrillation; F17.210 Nicotine dependence, cigarettes, uncomplicated; F15.90 Other stimulant use, unspecified, uncomplicated; Z86.718 Personal history of other venous thrombosis and embolism; Z79.01 Long term (current) use of anticoagulants; Z88.5 Allergy status to narcotic agent; Z79.899 Other long term (current) drug therapy; Y90.9 Presence of alcohol in blood, level not specified
CPT/HCPCS: 99283; Z7502